=== PATIENT | female | born 1945 | race Two or more races ===

== ENCOUNTER 2021-12-09 16:06 | Observation (INO) | payer BC, SELFPAY ==
[2021-12-09 16:26] VITALS: BP 138/72; PULSE 60; RESP 18; TEMP 36.7; O2SAT 97; BMI 19.6
--- NOTE | 2021-12-09 16:44 | CRLHL7_ITS ---
For Patients: As a result of the Century Cures Act, medical imaging exams and procedure reports are released immediately into your electronic medical record. You may view this report before your referring provider. If you have questions, please contact your health care provider. CT HEAD DATE: 12/09/2021 CLINICAL HISTORY: Patient with head trauma. TECHNIQUE: Standard CT scanning of the head was performed. COMPARISON: None. FINDINGS: There is right parietal subgaleal soft tissue swelling. There is a small amount of subarachnoid hemorrhage within a left occipital sulcus adjacent to the tentorium. There is encephalomalacia in the left superior frontal lobe with associated ex-vacuo dilatation of the left lateral ventricle. There are mild microangiopathic changes. There is diffuse parenchymal volume loss. There is no mass effect or midline shift. The calvarium is unremarkable. The orbits are unremarkable. The paranasal sinuses are unremarkable. The mastoid air cells are unremarkable. The soft tissues are unremarkable. IMPRESSION: 1. Small amount of subarachnoid hemorrhage within a left occipital sulcus adjacent to the tentorium, likely post-traumatic. A repeat head CT in 4-6 hours is recommended to assess for interval change. 2. Right parietal subgaleal soft tissue swelling without associated fracture. 3. Encephalomalacia in the left superior frontal lobe with associated ex-vacuo dilatation of the left lateral ventricle. Findings were discussed with Dr. Guerrero at 5:52 PM, within 5 minutes of initial identification. Please note that all CT scans at this facility use dose modulation, iterative reconstruction, and/or weight-based dosing when appropriate to reduce radiation dose to as low as reasonably achievable. Dictated by: Tushar Lynn MD @ 12/09/2021 17:53:16 (Electronically Signed)
--- NOTE | 2021-12-09 16:58 | ED.GENADULT ---
HPI - General Adult General Chief complaint: Head Injury/Pain Stated complaint: Fell and hit her head Time Seen by Provider: 12/09/21 16:11 Source: patient Mode of arrival: wheelchair Limitations: no limitations History of Present Illness HPI narrative: 76-year-old female coming in today after falling 2 hours prior to presenting to the ED. she states she was at home in the bathroom when she was going to readjust herself on her wheelchair. The wheelchair is not have the brakes on properly and slid out from underneath her and she fell to the ground hitting the right side of her head on the floor. She denies headache or neck pain. She states that she came to the ER for it evaluation given her history of spontaneous head bleeds. 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 She has been in a wheelchair since which she is working with PT and rehab services and she states that she is almost walking independently. She states that she just uses her wheelchair as needed to get around but that she can walk with a walker and her goal is to eventually walk with a cane. She denies blurry vision, changes in her hearing. She denies neck or back pain. She lives independently in nursing home. Recently moved to [place] because her brother who is helping to take care of her. Patient does not take any blood thinners. Related Data Home Medications Medication Instructions Recorded Confirmed amlodipine 10 mg tablet mg 12/09/21 atorvastatin 20 mg tablet mg 12/09/21 carvedilol 12.5 mg tablet mg 12/09/21 cyclobenzaprine 5 mg tablet mg 12/09/21 levetiracetam 500 mg tablet mg PO 12/09/21 tamsulosin 0.4 mg capsule mg PO 12/09/21 Allergies Allergy/AdvReac Type Severity Reaction Status Date / Time Penicillins Allergy Verified 12/09/21 16:26 Review of Systems Status of ROS: Reports: 10 or more systems reviewed and unremarkable except as noted in History and below Exam Narrative: Exam Narrative: Well-nourished well-developed patient in no acute distress. Sitting comfortably in her wheelchair. Alert and oriented. Answers questions appropriately. Mood and affect are appropriate. Thoughts are goal oriented and rational. No tangential or magical thinking noted. Patient speaks in full sentences without needing to catch her breath. Speech is not slurred or pressured. There is no facial asymmetry noted. HEENT: Normocephalic. Pupils are equally round reactive to light. Extraocular muscles are intact. Conjunctivae are moist without any icterus noted. Moist mucous membranes. Posterior pharynx is normal. Neck is soft without any lymphadenopathy or thyromegaly. No trauma noted to the inside of the mouth. She does have a small hematoma of the right posterolateral scalp. No broken skin. Cardiovascular: Heart is regular rate and rhythm S1 and S2 are present. Lungs: Clear to auscultation bilaterally . She has no tenderness to palpation of the cervical or thoracic spine. She has good range of motion at the neck with flexion, extension, side way bending and rotation without any pain or difficulty. Const: Vital Signs, click to edit/add: Vital Signs - 24 hr 12/09/21 16:26 Temperature 98.0 F Pulse Rate [Right Pulse Oximeter] 60 Respiratory Rate 18 Blood Pressure [Ri ght Upper Arm] 138/72 Pulse Oximetry 97 Oxygen Delivery Me thod Room Air Course Course Hospital Course: We did go ahead proceed with a head CT, did not feel the need to do a neck CT given her lack of symptoms. Head CT showed a small subarachnoid hemorrhage. I did consult with Dr. Moyer, neurosurgery at [facility] who recommended a repeat CT scan in 6 hours. There was no interval change she could be safely discharged home, if there was a slight increase he recommended repeating scans until there was no interval change. If there is a significant change then he recommends transfer to a neuro surgery Center. Vital Signs Vital signs: Initial Vital Signs Temperature 98.0 F 12/09/21 16:26 Temperature Source Temporal Artery Scan 12/09/21 16:26 Pulse Rate 60 12/09/21 16:26 Respiratory Rate 18 12/09/21 16:26 Blood Pressure 138/72 12/09/21 16:26 Blood Pressure Mean 94 12/09/21 16:26 Blood Pressure Position Sitting 12/09/21 16:26 Pulse Oximetry 97 12/09/21 16:26 Oxygen Delivery Method 12/09/21 16:26 Vital Signs Temperature 98.0 F 12/09/21 16:26 Pulse Rate 60 12/09/21 16:26 Respiratory Rate 18 12/09/21 16:26 Blood Pressure 138/72 09/21/22 16:26 Pulse Oximetry 97 12/09/21 16:26 Oxygen Delivery Method 12/09/21 16:26 Temperature 98.0 F 12/09/21 16:26 Pulse Rate 60 12/09/21 16:26 Respiratory Rate 18 12/09/21 16:26 Blood Pressure 138/72 12/09/21 16:26 Pulse Oximetry 97 12/09/21 16:26 Oxygen Delivery Method 12/09/21 16:26 Medical Decision Making MDM Narrative Medical decision making narrative: 76-year-old female status post fall with a closed head injury and a subarachnoid bleed. Patient be admitted for further management and serial scans. Medical Records Medical records reviewed: Yes I reviewed the patient's medical records Imaging Data CT scan - head: Attestation: I have reviewed the pertinent imaging results. Radiologist's impression: TECHNIQUE: Standard CT scanning of the head was performed. COMPARISON: None. FINDINGS: There is right parietal subgaleal soft tissue swelling. There is a small amount of subarachnoid hemorrhage within a left occipital sulcus adjacent to the tentorium. There is encephalomalacia in the left superior frontal lobe with associated ex-vacuo dilatation of the left lateral ventricle. There are mild microangiopathic changes. There is diffuse parenchymal volume loss. There is no mass effect or midline shift. The calvarium is unremarkable. The orbits are unremarkable. The paranasal sinuses are unremarkable. The mastoid air cells are unremarkable. The soft tissues are unremarkable. IMPRESSION: 1. Small amount of subarachnoid hemorrhage within a left occipital sulcus adjacent to the tentorium, likely post-traumatic. A repeat head CT in 4-6 hours is recommended to assess for interval change. 2. Right parietal subgaleal soft tissue swelling without associated fracture. 3. Encephalomalacia in the left superior frontal lobe with associated ex-vacuo dilatation of the left lateral ventricle. Discharge Plan Discharge Clinical Impression: Subarachnoid hemorrhage, Closed head injury, Hematoma of scalp Patient Disposition: Admitted As Inpatient Condition: Stable Additional Instructions: Okay to ice tender area on head, do not apply ice directly to skin. Okay to take Tylenol as needed for discomfort. Return to the ER if you develop confusion, vomiting or lethargy. Prescriptions: No Action atorvastatin 20 mg tablet Label Comments: TAKE 1 TABLET (20 MG) BY MOUTH ONCE DAILY. carvedilol 12.5 mg tablet Label Comments: TAKE 1 TABLET (12.5 MG) BY MOUTH IN THE MORNING AND 1 TABLET IN THE EVENING. TAKE WITH MEALS. levetiracetam 500 mg tablet PO Label Comments: TAKE 1 TABLET (500 MG) BY MOUTH IN THE MORNING AND 1 TABLET IN THE EVENING. tamsulosin 0.4 mg capsule PO Label Comments: TAKE 1 CAPSULE (0.4 MG) BY MOUTH ONCE DAILY AFTER A MEAL. amlodipine 10 mg tablet Label Comments: TAKE 1 TABLET (10 MG) BY MOUTH ONCE DAILY. cyclobenzaprine 5 mg tablet Label Comments: TAKE 1 TABLET (5 MG) BY MOUTH 3 TIMES DAILY IF NEEDED FOR MUSCLE SPASM. Stand Alone Forms: [employer] Info Instructions
[2021-12-09 20:00] LABS: SARS PCR* Negative SARS-CoV-2 (Negative)
[2021-12-09 20:08] VITALS: BP 129/70; PULSE 64; RESP 12; TEMP 36.7
[2021-12-09 20:10] VITALS: BP 129/70; PULSE 64; RESP 12; TEMP 36.7; O2SAT 97
[2021-12-09 20:11] VITALS: BP 132/70; PULSE 66; RESP 16; TEMP 36.8; O2SAT 97; BMI 19.4
--- NOTE | 2021-12-09 20:44 | P.IMHP_ITS ---
Hospitalist- H&P: HPI History of Present Illness Date Seen: 12/09/21 Chief complaint: Fell and hit her head Narrative: REN SWEENEY is a 76 year old female who 3 years ago had a hemorrhagic CVA resulting in her use of a wheelchair. Pt has made remarkable improvements over the interim and is nearly able to walk on her own again. Pt recently moved from [facility] to [place]. She lives in a Senior apartment and unfortunately slipped off of her wheelchair while in the bathroom today. She fell and struck the right side of her head. She is not on anticoagulants but due to her history she presented to the ED for further evaluation. CT of the head showed a small amount of subarachnoidal hemorrhage within a left occipital sulcus as well as chronic encephalomalacia. Pt feels well and has only mild swelling with no head or neck pain no other injuries. Neurosurgeon recommended repeat CT in 6 hours with further studies if subtle change, transfer if no change and possible discharge in am if no change. No neck CT or lab work done. Review of Systems Status of ROS: Reports: 10 or more systems reviewed and unremarkable except as noted in History and below [facility] Medical History (Updated 12/09/21 @ 20:56 by Jimmy Roger MD) Hemorrhagic stroke Hyperlipidemia Hypertension Subarachnoid bleed Social History Smoking Status: Unknown if ever smoked Non-prescribed substance use: denies use Meds Home Medications and Allergies Home Medications Medication Instructions Recorded Confirmed Type amlodipine 10 mg tablet mg 12/09/21 History atorvastatin 20 mg tablet mg 12/09/21 History carvedilol 12.5 mg tablet mg 12/09/21 History cyclobenzaprine 5 mg tablet mg 12/09/21 History levetiracetam 500 mg tablet mg PO 12/09/21 History tamsulosin 0.4 mg capsule mg PO 12/09/21 History Home Medication Comments: Reviewed Allergies Allergy/AdvReac Type Severity Reaction Status Date / Time Penicillins Allergy Verified 12/09/21 16:26 Exam Narrative: Exam Narrative: EXAM GENERAL: Patient appears comfortable and well. Contusion noted the posterior occiput to the right of the midline. No skin breakdown. EYES: No scleral icterus. THYROID: no thyroid nodules or thyromegaly. LYMPH: No supraclavicular or cervical lymphadenopathy. SKIN: Visible skin seen during exam normal or with benign process only. EXT: No dependent lower extremity pedal edema. HEART: Regular rate and rhythm with no murmurs, rubs, or gallops. LUNGS: Clear to auscultation bilaterally with no crackles or wheezes. ABD: Soft, non tender, non distended. PSYCH: Good eye contact, speech is not pressured. Neurologic: Cranial nerves 2-12 were grossly intact she does have some lower extremity weakness but no focal defects. Const: Vital Signs, click to edit/add: Vital Signs - 24 hr 12/09/21 16:26 12/09/21 20:08 12/09/21 20:10 Temperature 98.0 F 98.0 F 98.0 F Pulse Rate [Right Pulse Oximeter] 60 64 64 Respiratory Rate 18 12 12 Blood Pressure [Ri ght Upper Arm] 138/72 129/70 129/70 Pulse Oximetry 97 97 Oxygen Delivery Me thod Room Air Room Air Assessment and Plan Assessment and plan (1) Subarachnoid bleed: Status: Acute Assessment and Plan: Pt is neurologically stable. Feeling fine with no complaints. Will repeat CT at the 6 hour audrey and follow Neurosurgery's recommendations as listed above. Will also collect CBC, BMP and will add CT of cervical spine to next imaging as a precaution. (2) Hyperlipidemia: Status: Chronic Assessment and Plan: Continue outpt regiment. (3) Hypertension: Status: Chronic Assessment and Plan: Stabel. Will continue outpt medications (4) Hemorrhagic stroke: Status: Chronic Assessment and Plan: Continue outpt regiment and further rehabilitation. Plan Pt wishes to be a full code.
[2021-12-09 21:00] VITALS: BP 132/70; PULSE 66; RESP 16; TEMP 36.8; O2SAT 97
[2021-12-09 22:28] LABS: Chloride* 103 mmol/L (96-114); Potassium* 3.7 mmol/L (3.6-5.1); Sodium* 139 mmol/L (135-149)
[2021-12-09 22:31] LABS: Blood Urea Nitrogen* 12 mg/dL (7-30); Calcium* 9.3 mg/dL (8.4-10.6); Carbon Dioxide* 26 mmol/L (20-32); Creatinine* 0.4 mg/dL (0.5-1.5); Est. Creatinine Clearance* 43.85; Estimated Glomerular Filt Rate 104 ml/min; Glucose* 129 mg/dL (60-115)
[2021-12-09 22:39] LABS: Basophils Absolute Auto 0.01 K/uL (0.00-0.30); Basophils Percent Auto 0.2 % (0.0-3.0); Eosinophils Absolute Auto 0.12 K/uL (0.00-0.50); Eosinophils Percent Auto 1.9 % (0.0-7.0); Hematocrit 40.2 % (33.0-51.0); Hemoglobin* 13.6 gm/dL (12.0-16.0); Immature Granulocytes Abs Auto 0.01 K/uL (0.00-0.30); Lymphocytes Absolute Auto 1.28 K/uL (0.90-2.90); Lymphocytes Percent Auto 20.4 % (20-44); Mean Corpuscular HGB Conc 34 gm/dL (32-36); Mean Corpuscular Hemoglobin 31 pg (26-34); Mean Corpuscular Volume 91 fL (80-100); Monocytes Percent Auto 12.1 % (0.0-11.0); Neutrophils Absolute Auto 4.09 K/uL (1.7-7.0); Neutrophils Percent Auto 65.2 % (42.0-72.0); Platelet Count* 286 K/uL (140-440); RDW Coefficient of Variation % 12.4 % (11.5-15.5); Red Blood Count 4.41 m/uL (4.00-5.20); White Blood Count* 6.27 K/uL (4.50-11.00)
[2021-12-09 22:52] LABS: Slide Review Reflex No
[2021-12-09 23:00] VITALS: BP 123/66; PULSE 61; RESP 16; TEMP 36.7; O2SAT 97
--- NOTE | 2021-12-10 | CRLHL7_ITS ---
For Patients: As a result of the Century Cures Act, medical imaging exams and procedure reports are released immediately into your electronic medical record. You may view this report before your referring provider. If you have questions, please contact your health care provider. INDICATION: Fall TECHNIQUE: CT cervical spine without contrast. COMPARISON: None FINDINGS: Vertebral alignment: Alignment is normal. Vertebrae: There are no fractures or suspicious bony lesions. Discs and facet joints: There are moderate multilevel degenerative disc and facet changes. Extraspinal findings: Paraspinous soft tissues are unremarkable. IMPRESSION: 1. No sign of acute injury. 2. Multilevel degenerative spondylosis. Please note that all CT scans at this facility use dose modulation, iterative reconstruction, and/or weight-based dosing when appropriate to reduce radiation dose to as low as reasonably achievable. Dictated by Venessa Hagen MD @ 12/10/2021 1:02:36 AM (Electronically Signed)
--- NOTE | 2021-12-10 | CRLHL7_ITS ---
For Patients: As a result of the Century Cures Act, medical imaging exams and procedure reports are released immediately into your electronic medical record. You may view this report before your referring provider. If you have questions, please contact your health care provider. INDICATION: Fall TECHNIQUE: Head CT without contrast. COMPARISON: December 09, 2021 FINDINGS: CSF spaces: Within normal limits for age. Brain parenchyma: There are nonspecific low attenuation white matter changes consistent with chronic microvascular disease. No sign of mass, hemorrhage, or midline shift. Encephalomalacia in the high left frontal lobe from prior infarction. There are a few foci of dystrophic calcification in this region, unchanged. Associated ex vacuo dilatation of the left lateral ventricle. Skull base and calvarium: The visualized paranasal sinuses and mastoid air cells demonstrate no acute or significant findings. The visualized orbits are grossly unremarkable. No skull fractures. There is intracranial atherosclerosis. IMPRESSION: 1. No acute findings. 2. Nonspecific white matter disease, typical of chronic microvascular disease. 3. Encephalomalacia in the high left frontal lobe from prior infarction. Please note that all CT scans at this facility use dose modulation, iterative reconstruction, and/or weight-based dosing when appropriate to reduce radiation dose to as low as reasonably achievable. Dictated by Venessa Hagen MD @ 12/10/2021 1:06:02 AM (Electronically Signed)
[2021-12-10 03:00] VITALS: BP 103/54; PULSE 66; RESP 16; TEMP 36.7; O2SAT 97
--- NOTE | 2021-12-10 05:18 | PC.NURSE ---
[id number]: patient had michael. CT, charge nures notified patient of results. paient able to make needs known, appears to have slept overnight.
[2021-12-10 07:00] VITALS: BP 113/61; PULSE 64; RESP 16; TEMP 36.7; O2SAT 95
--- NOTE | 2021-12-10 09:01 | CRLHL7_ITS ---
For Patients: As a result of the Century Cures Act, medical imaging exams and procedure reports are released immediately into your electronic medical record. You may view this report before your referring provider. If you have questions, please contact your health care provider. INDICATION: Subarachnoid hemorrhage. TECHNIQUE: CT head without contrast. COMPARISON: 12/10/2021. 12/09/2021. FINDINGS: CSF spaces: Within normal limits for age. Brain parenchyma and extra-axial spaces: Again demonstrated are small serpiginous densities in the occipital regions bilaterally, right greater than left. These are similar to the prior exams. Otherwise no sign of intracranial hemorrhage or extra-axial fluid collection. No mass effect or midline shift. Skull base and calvarium: The visualized paranasal sinuses and mastoid air cells demonstrate no acute or significant findings. The visualized orbits are grossly unremarkable. No skull fractures. IMPRESSION: No changes from the prior exam. Possible small areas of subarachnoid hemorrhage in the occipital regions are stable. No new or worsening finding. Please note that all CT scans at this facility use dose modulation, iterative reconstruction, and/or weight-based dosing when appropriate to reduce radiation dose to as low as reasonably achievable. Dictated by Dinesh Zhang MD @ 12/10/2021 10:33:00 AM (Electronically Signed)
--- NOTE | 2021-12-10 10:12 | P.DS_ITS ---
DS: Providers Provider Time Seen by Provider: 08:05 Date Seen: 12/10/21 Date of admission: 12/09/21 19:18 Primary care physician: Not a Local Provider Admitting Clinician: Jimmy Roger MD Attending Physician on discharge: Kelsi Melendez MD Date of Discharge: 12/10/21 DS: Diagnosis Discharge Diagnosis (1) Hyperlipidemia: Status: Chronic (2) Hypertension: Status: Chronic (3) Hemorrhagic stroke: Status: Chronic (4) Closed head injury: Status: Acute (5) Hematoma of scalp: Status: Acute (6) Subarachnoid hemorrhage: Status: Acute DS: Summary Hospital Course Hospital Course: This is a 76-year-old female with 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 Due to her history of intracranial bleed she is not on any anticoagulants. Upon presentation to the emergency department a CT head was done and showed a small amount of subarachnoid hemorrhage within the left occipital sulcus as well as chronic encephalomalacia. The patient felt well with only mild swelling and no other symptoms or injury. Neurosurgeon recommended repeating the CT in 6 hours with further studies if subtle change. CT cervical spine was completed and showed no sign of acute injury. Repeat head CT in 6 hours did not comment on previous subarachnoid hemorrhage finding. I spoke with the radiologist this morning who recommended a repeat head CT this morning. Physical exam appears to be at b as[facility]. Repeat head CT this morning shows stable SAH. Time Spent with Patient Time attestation: Total time spent providing and/or coordinating discharge services: Exam Narrative: Exam Narrative: General: No acute distress. Awake, alert, oriented x3. No pallor. No jaundice. Cardiovascular: Regular rate and rhythm. No murmurs, gallops, or rubs. Respiratory: Clear to auscultation bilaterally. No wheezes or crackles. Abdomen: Bowel sounds present. Soft, nondistended, nontender. Extremities: No pedal edema. Neuro: Cranial nerves 2-12 are intact. No facial asymmetry. Tongue is midline. Strength is 5/5 in both upper extremities. Strength is 3/5 in the distal portion of the right lower extremity and she has footdrop on that extremity, which is chronic. Left lower extremity is 4/5. Const: Vital Signs, click to edit/add: Vital Signs - 24 hr 12/09/21 16:26 12/09/21 20:08 12/09/21 20:10 Temperature 98.0 F 98.0 F 98.0 F Pulse Rate [Right Pulse Oximeter] 60 64 64 Respiratory Rate 18 12 12 Blood Pressure [Ri ght Radial Artery] Blood Pressure [Ri ght Upper Arm] 138/72 129/70 129/70 Pulse Oximetry 97 97 Oxygen Delivery Me thod Room Air Room Air 12/09/21 20:11 12/09/21 21:00 12/09/21 23:00 Temperature 98.3 F 98.3 F Pulse Rate [Right Pulse Oximeter] 66 66 61 Respiratory Rate 16 16 16 Blood Pressure [Ri ght Radial Artery] 132/70 132/70 Blood Pressure [Ri ght Upper Arm] Pulse Oximetry 97 97 Oxygen Delivery Me thod Room Air Room Air 12/09/21 23:00 12/10/21 03:00 12/10/21 07:00 Temperature 98.1 F 98.1 F Pulse Rate [Right Pulse Oximeter] 61 66 64 Respiratory Rate 16 16 16 Blood Pressure [Ri ght Radial Artery] 123/66 103/54 L Blood Pressure [Ri ght Upper Arm] Pulse Oximetry 97 97 Oxygen Delivery Me thod Room Air Room Air 12/10/21 07:00 Temperature 98.0 F Pulse Rate [Right Pulse Oximeter] 64 Respiratory Rate 16 Blood Pressure [Ri ght Radial Artery] 113/61 Blood Pressure [Ri ght Upper Arm] Pulse Oximetry 95 Oxygen Delivery Me thod Room Air DS: Data Data Completed and Pending Completed studies during hospitalization: Ordering Physician: Wendy Guerrero MD Date of Service: 12/09/21 Procedure(s): CT head/brain wo con Accession Number(s): [id number] cc: Wendy Guerrero MD; Provider,Not a Local ~ For Patients: As a result of the Century Cures Act, medical imaging exams and procedure reports are released immediately into your electronic medical record. You may view this report before your referring provider. If you have questions, please contact your health care provider. CT HEAD DATE: 12/09/2021 CLINICAL HISTORY: Patient with head trauma. TECHNIQUE: Standard CT scanning of the head was performed. COMPARISON: None. FINDINGS: There is right parietal subgaleal soft tissue swelling. There is a small amount of subarachnoid hemorrhage within a left occipital sulcus adjacent to the tentorium. There is encephalomalacia in the left superior frontal lobe with associated ex-vacuo dilatation of the left lateral ventricle. There are mild microangiopathic changes. There is diffuse parenchymal volume loss. There is no mass effect or midline shift. The calvarium is unremarkable. The orbits are unremarkable. The paranasal sinuses are unremarkable. The mastoid air cells are unremarkable. The soft tissues are unremarkable. IMPRESSION: 1. Small amount of subarachnoid hemorrhage within a left occipital sulcus adjacent to the tentorium, likely post-traumatic. A repeat head CT in 4-6 hours is recommended to assess for interval change. 2. Right parietal subgaleal soft tissue swelling without associated fracture. 3. Encephalomalacia in the left superior frontal lobe with associated ex-vacuo dilatation of the left lateral ventricle. Findings were discussed with Dr. Guerrero at 5:52 PM, within 5 minutes of initial identification. Please note that all CT scans at this facility use dose modulation, iterative reconstruction, and/or weight-based dosing when appropriate to reduce radiation dose to as low as reasonably achievable. Dictated by: Tushar Lynn MD @ 12/09/2021 17:53:16 (Electronically Signed) Ordering Physician: Jimmy Roger M.D. Date of Service: 12/10/21 Procedure(s): CT cervical spine wo con Accession Number(s): [id number] cc: Provider,Not a Local ; Jimmy Roger M.D.~ For Patients: As a result of the Century Cures Act, medical imaging exams and procedure reports are released immediately into your electronic medical record. You may view this report before your referring provider. If you have questions, please contact your health care provider. INDICATION: Fall TECHNIQUE: CT cervical spine without contrast. COMPARISON: None FINDINGS: Vertebral alignment: Alignment is normal. Vertebrae: There are no fractures or suspicious bony lesions. Discs and facet joints: There are moderate multilevel degenerative disc and facet changes. Extraspinal findings: Paraspinous soft tissues are unremarkable. IMPRESSION: 1. No sign of acute injury. 2. Multilevel degenerative spondylosis. Please note that all CT scans at this facility use dose modulation, iterative reconstruction, and/or weight-based dosing when appropriate to reduce radiation dose to as low as reasonably achievable. Dictated by Venessa Hagen MD @ 12/10/2021 1:02:36 AM (Electronically Signed) Ordering Physician: Jimmy Roger M.D. Date of Service: 12/10/21 Procedure(s): CT head/brain wo con Accession Number(s): [id number] cc: Provider,Not a Local ; Jimmy Roger M.D.~ For Patients: As a result of the Cures Act, medical imaging exams and procedure reports are released immediately into your electronic medical record. You may view this report before your referring provider. If you have questions, please contact your health care provider. INDICATION: Fall TECHNIQUE: Head CT without contrast. COMPARISON: December 09, 2021 FINDINGS: CSF spaces: Within normal limits for age. Brain parenchyma: There are nonspecific low attenuation white matter changes consistent with chronic microvascular disease. No sign of mass, hemorrhage, or midline shift. Encephalomalacia in the high left frontal lobe from prior infarction. There are a few foci of dystrophic calcification in this region, unchanged. Associated ex vacuo dilatation of the left lateral ventricle. Skull base and calvarium: The visualized paranasal sinuses and mastoid air cells demonstrate no acute or significant findings. The visualized orbits are grossly unremarkable. No skull fractures. There is intracranial atherosclerosis. IMPRESSION: 1. No acute findings. 2. Nonspecific white matter disease, typical of chronic microvascular disease. 3. Encephalomalacia in the high left frontal lobe from prior infarction. Please note that all CT scans at this facility use dose modulation, iterative reconstruction, and/or weight-based dosing when appropriate to reduce radiation dose to as low as reasonably achievable. Dictated by Venessa Hagen MD @ 12/10/2021 1:06:02 AM (Electronically Signed) Ordering Physician: Kelsi Melendez MD Date of Service: 12/10/21 Procedure(s): CT head/brain wo con Accession Number(s): [id number] cc: Kelsi Melendez MD; Provider,Not a Local ~ For Patients:? As a result of the Cures Act, medical imaging exams and procedure reports are released immediately into your electronic medical record.? You may view this report before your referring provider.? If you have questions, please contact your health care provider. INDICATION: Subarachnoid hemorrhage. TECHNIQUE: CT head without contrast. COMPARISON: 12/10/2021. 12/09/2021. FINDINGS: CSF spaces: Within normal limits for age.? Brain parenchyma and extra-axial spaces: Again demonstrated are small serpiginous densities in the occipital regions bilaterally, right greater than left. These are similar to the prior exams. Otherwise no sign of intracranial hemorrhage or extra-axial fluid collection. No mass effect or midline shift. Skull base and calvarium: The visualized paranasal sinuses and mastoid air cells demonstrate no acute or significant findings.? The visualized orbits are grossly unremarkable.? No skull fractures.? IMPRESSION: No changes from the prior exam. Possible small areas of subarachnoid hemorrhage in the occipital regions are stable. No new or worsening finding. Please note that all CT scans at this facility use dose modulation, iterative reconstruction, and/or weight-based dosing when appropriate to reduce radiation dose to as low as reasonably achievable. Dictated by Dinesh Zhang MD @ 12/10/2021 10:33:00 AM (Electronically Signed) Labs on day of discharge: Labs from last 24 hours 12/09/21 12/09/21 12/09/21 22:09 22:09 19:08 WBC 6.27 RBC 4.41 Hgb 13.6 Hct 40.2 MCV 91 MCH 31 MCHC 34 RDW Coeff of Jana 12.4 Plt Count 286 Neut % (Auto) 65.2 Lymph % (Auto) 20.4 [place] % (Auto) 12.1 H Eos % (Auto) 1.9 Baso % (Auto) 0.2 Neut # (Auto) 4.09 Lymph # (Auto) 1.28 [place] # (Auto) 0.80 Eos # (Auto) 0.12 Baso # (Auto) 0.01 Abs Immat Gran (auto) 0.01 Sodium 139 Potassium 3.7 Chloride 103 Carbon Dioxide 26 BUN 12 Creatinine 0.4 L Estimated Creat Clear 43.85 Estimated GFR 104 Glucose 129 H Calcium 9.3 SARS-CoV-2 (PCR) Negative SARS-CoV-2 Discharge Plan Discharge Disposition: Home, Self-Care Date of Admission: 12/09/21 19:18 Attending Provider on Discharge: Kelsi Melendez Primary Care Provider: Provider,Not a Local Condition: Stable Anticipated Discharge Date/Time: 12/10/21 00:00 Discharge Medications: Continued atorvastatin 20 mg tablet 20 mg PO DAILY carvedilol 12.5 mg tablet 12.5 mg PO BID levetiracetam 500 mg tablet 500 mg PO BID tamsulosin 0.4 mg capsule 0.4 mg PO DAILY amlodipine 10 mg tablet 10 mg PO DAILY cyclobenzaprine 5 mg tablet 5 mg PO TID PRN Discharge Orders: Discharge Order (Routine); Ordered 12/10/21 Ordered By: Kelsi Melendez Patient Education: Subarachnoid Hemorrhage (DC) Activity Restrictions/Additional Instructions: Okay to ice tender area on head, do not apply ice directly to skin. Okay to take Tylenol as needed for discomfort. Return to the ER if you develop confusion, vomiting or lethargy. Activity Level: Activity as Tolerated and Other Activity Detail: Use wheelchair as needed Discharge Diet: Regular Follow Up Appointments: Provider,Not a Local [Primary Care Provider] - Forms: [employer] Info Instructions
[2021-12-10] MEDS: levETIRAcetam 500 MG TABLET PO (10:51)
--- NOTE | 2021-12-10 11:49 | PC.SOCIAL ---
Social work note: Received call from pt's [facility] pillowcase turner, Adry ([phone]), stating she has spoken with pt today and is aware she is in the hospital. Adry states pt is already receiving nurse visits for medication set up from [facility], housekeeping services, [employer] and home delivered meals. Adry states pt's needs were met and home and she has no concerns at this time about need for increased services. However, if there is a change in home care or medication needs, Adry requested information or new medication orders be faxed to [facility] attn:Susan Ayon at fax#: [phone]. If there are no new identified needs, [facility] medical social worker will follow up with pt after discharge.
--- NOTE | 2021-12-10 12:00 | PC.SOCIAL ---
Met with pt., brother and [id number] per request for a Health Care Directive and Power of prepress operator for financial. Discussed the different forms and pt. wanted to fill out a POLST, HCD short-form appointing her [id number] as her health care agent, and a power of prepress operator for financial. All the above forms were filled out signed and notarized.
--- NOTE | 2021-12-10 12:13 | PC.NURSE ---
Pt. alert and oriented x4. Pt. denies any pain, N/V or SOB. Pt. able to ambulate using walker to BR, SBA. Pt. VSS. Pt. NPO until after CT scan and the all clear of no changes. Discharged at 1155, via pt.'s WC, accompanied by sister in law and Brother. Discharge instructions given and belongings list signed. Pt. verbalized understanding of Discharge instructions.
== END 2021-12-10 11:55 | disposition home or self-care (01) ==
LOC: ED 19:11 → MEDSURG 19:19
PROVIDERS: Admitting Provider Internal Medicine; Emergency Provider Family Medicine; PCP Family Medicine; Visit Provider Internal Medicine
DX: S06.6X0A Traumatic subarachnoid hemorrhage without loss of consciousness, initial encounter (principal); S00.03XA Contusion of scalp, initial encounter; G93.89 Other specified disorders of brain; W05.0XXA Fall from non-moving wheelchair, initial encounter; Y92.091 Bathroom in other non-institutional residence as the place of occurrence of the external cause; Y93.9 Activity, unspecified; Z86.73 Personal history of transient ischemic attack (TIA), and cerebral infarction without residual deficits; I10 Essential (primary) hypertension; E78.5 Hyperlipidemia, unspecified; F82 Specific developmental disorder of motor function
CPT/HCPCS: 36415; 70450; 72125; 80048; 85025; 87635; 99284; 99285; G0378; A9270; G0379

== ENCOUNTER 2022-06-02 09:15 | Outpatient (RCR) | payer BC, MEDICARE, MEDICAID, SELFPAY | END 2022-06-04 14:32 | disposition home or self-care (01) | PROVIDERS: PCP Family Medicine; Visit Provider Family Medicine | DX: Z86.73 Personal history of transient ischemic attack (TIA), and cerebral infarction without residual deficits (principal); Z51.89 Encounter for other specified aftercare | CPT/HCPCS: 97110; 97112; 97116; 97162; 97530; 97535 ==

== ENCOUNTER 2023-03-17 14:21 | Outpatient (CLI) | payer BC, SELFPAY | END 2023-03-17 14:22 | disposition home or self-care (01) | LOC: AMB 03-22 09:18 | PROVIDERS: PCP Family Medicine; Visit Provider Emergency Medicine Emergency Medical Services | DX: H53.9 Unspecified visual disturbance (principal) | CPT/HCPCS: A0425; A0429 ==

== ENCOUNTER 2023-03-17 14:37 | Emergency (ER) | payer BC, SELFPAY ==
[2023-03-17 14:46] VITALS: BP 133/83; PULSE 67; RESP 18; TEMP 36.9; O2SAT 94; BMI 20.4
--- NOTE | 2023-03-17 15:18 | ED.EYEPROB ---
HPI - Eye Problem General Date Seen: 03/17/23 Chief complaint: Eye Problems Stated complaint: Vision problems Time Seen by Provider: 03/17/23 14:41 Source: patient Mode of arrival: EMS Limitations: no limitations History of Present Illness HPI Narrative: Patient is a 77-year-old female history hemorrhagic strokes presenting to emergency department for vision concerns. She states she has been noticing vision floaters for the past month or so. She states this started shortly before she got her routine MRI done but she gets due to her previous strokes and seizures. She spoke to her neurologist about these floaters and she was told not to worry about them but did not get much more information other than that. They have persisted so she was concerned and spoke to the triage line. She was told to come to the emergency department immediately. She cannot drive due to residual stroke deficits of she called EMS. States she will occasionally have these black kiss appearing spots in her vision that come and go. They are not always there. She cannot think of any specifics that make them worse. Is not having any symptoms right now. Denies any weakness or numbness. Denies headache, chest pain, shortness of breath, fevers, chills, diarrhea, constipation, abdominal pain. No other concerns at this time Related Data Home Medications Medication Instructions Recorded Confirmed amlodipine 10 mg tablet 10 mg PO DAILY 12/09/21 12/10/21 atorvastatin 20 mg tablet 20 mg PO DAILY 12/09/21 12/10/21 carvedilol 12.5 mg tablet 12.5 mg PO BID 12/09/21 12/10/21 cyclobenzaprine 5 mg tablet 5 mg PO TID PRN 12/09/21 12/10/21 levetiracetam 500 mg tablet 500 mg PO BID 12/09/21 12/10/21 tamsulosin 0.4 mg capsule 0.4 mg PO DAILY 12/09/21 12/10/21 Allergies Allergy/AdvReac Type Severity Reaction Status Date / Time Penicillins Allergy Verified 12/09/21 16:26 Review of Systems Status of ROS: Reports: 10 or more systems reviewed and unremarkable except as noted in History and below [facility] Medical History (Updated 12/22/21 @ 14:22 by BRANDAN Gleason) Durable power of assistant prosecuting attorney in chart POLST (Physician Orders for Life-Sustaining Treatment) ?Z78.9 - Other specified health status (ICD-10) Health care directive on file ?Z78.9 - Other specified health status (ICD-10) Subarachnoid bleed ?I60.9 - Nontraumatic subarachnoid hemorrhage, unspecified (ICD-10) Hyperlipidemia ?E78.5 - Hyperlipidemia, unspecified (ICD-10) Hypertension ?I10 - Essential (primary) hypertension (ICD-10) Hemorrhagic stroke ?I61.9 - Nontraumatic intracerebral hemorrhage, unspecified (ICD-10) Social History Highest level of school completed/degree received: some college, no degree Smoking Status: Never smoker Do you use any of these nicotine containing products: None How often do you have a drink containing alcohol: never How often do you have six or more drinks on one occasion: Never AUDIT-C Alcohol total score: 0 Non-prescribed substance use: denies use Caffeine: No service: No Exam Narrative: Exam Narrative: Const: Well-nourished, Well-developed, in no distress Eyes: PERRL, no conjunctival injection, and symmetrical lids HENT: Atraumatic external nose and ears. Moist mucous membranes. Neck: Symmetric, trachea midline, No thyromegaly. CVS: RRR, No murmurs or gallops. Peripheral pulses 2+ and equal in all extremities RESP: Unlabored respiratory effort. Clear to auscultation bilaterally. GI: Nontender/Nondistended, No rebound or guarding. MSK:Extremities w/o deformity, Normal Active ROM Skin: Warm, Dry. No rashes or lesions. Neuro: Normal Muscle tone, No focal neurological deficits. Psych: Awake, Alert, & Oriented x3. Appropriate mood and affect. Const: Vital Signs, click to edit/add: Vital Signs - 24 hr 03/17/23 14:46 Temperature 98.5 F Pulse Rate [Right Pulse Oximeter] 67 Respiratory Rate 18 Blood Pressure [Ri ght Upper Arm] 133/83 Pulse Oximetry 94 Oxygen Delivery Me thod Room Air Course Vital Signs Vital signs: Initial Vital Signs Temperature 98.5 F 03/17/23 14:46 Temperature Source Temporal Artery Scan 03/17/23 14:46 Pulse Rate 67 03/17/23 14:46 Respiratory Rate 18 03/17/23 14:46 Blood Pressure 133/83 12/28/23 14:46 Blood Pressure Mean 99 03/17/23 14:46 Blood Pressure Position Sitting 03/17/23 14:46 Pulse Oximetry 94 03/17/23 14:46 Oxygen Delivery Method Room Air 03/17/23 14:46 Vital Signs Temperature 98.5 F 03/17/23 14:46 Pulse Rate 67 03/17/23 14:46 Respiratory Rate 18 03/17/23 14:46 Blood Pressure 133/83 03/17/23 14:46 Pulse Oximetry 94 03/17/23 14:46 Oxygen Delivery Method Room Air 03/17/23 14:46 Temperature 98.5 F 03/17/23 14:46 Pulse Rate 67 03/17/23 14:46 Respiratory Rate 18 03/17/23 14:46 Blood Pressure 133/83 03/17/23 14:46 Pulse Oximetry 94 03/17/23 14:46 Oxygen Delivery Method Room Air 03/17/23 14:46 MDM - Eye Problem MDM Narrative Medical decision making narrative: Patient is a 77-year-old female presenting for eye floaters. She was concerned that could be stroke related due to her long history brain issues. She states the symptoms started before her most recent routine MRI and she has talked to her neurologist about it once before but was never told if they would last for ever and not in she was concerned that they were still occurring. She spoke to a triage nurse and was told to come to the emergency department. She is asymptomatic at this time. Based on her description this does appear to be standard eye floaters. She is not having any other vision issues a and is currently reading a book. Is not having any other neurologic symptoms. I I do not believe imaging is necessary at this time and she can be discharged home. Discharge Plan Discharge Prescriptions: No Action atorvastatin 20 mg tablet 20 mg PO DAILY carvedilol 12.5 mg tablet 12.5 mg PO BID levetiracetam 500 mg tablet 500 mg PO BID tamsulosin 0.4 mg capsule 0.4 mg PO DAILY amlodipine 10 mg tablet 10 mg PO DAILY cyclobenzaprine 5 mg tablet 5 mg PO TID PRN Follow Up/Referrals: Delicia Lofton MD [Primary Care Provider] -
== END 2023-03-17 15:36 | disposition home or self-care (01) ==
PROVIDERS: Emergency Provider Student in an Organized Health Care Education/Training Program; PCP Family Medicine
DX: H43.393 Other vitreous opacities, bilateral (principal)
CPT/HCPCS: 99282

== ENCOUNTER 2023-07-08 15:07 | Outpatient (CLI) | payer BC, SELFPAY | END 2023-07-08 15:08 | disposition home or self-care (01) | LOC: AMB 07-10 13:41 | PROVIDERS: PCP Family Medicine; Visit Provider Emergency Medicine | DX: R53.1 Weakness (principal) | CPT/HCPCS: A0998 ==

== ENCOUNTER 2023-08-19 13:45 | Outpatient (RCR) | payer BC, SELFPAY ==
--- NOTE | 2022-12-23 12:53 | PT.OPEX ---
PT [facility] Start: 12/22/22 15:27 Freq: Status: Active Protocol: Document 12/22/22 15:27 HILDA (Rec: 12/22/22 17:10 HILDA [id number]) E-signed By Myrtle Anne PT Physical Therapy Outpatient Evaluation Insurance Information Recert Due Date 03/21/23 Insurance Name Medicaid Medical Diagnosis LATE EFFECTS OF CVA (RIGHT) I69.351 Treating Diagnosis UNSTEADY ON FEET R26.81 IMPAIRED COORDINATION R27.8 Referring MD HARRIS. Subjective Subjective PATIENT COMES TODAY STRONG MOTIVATION TO WALK WITH HER DADS MILENA STATING, I'M SO CLOSE AND I FEEL LIKE IF I JUST WAS A LITTLE STEADIER ON MY FEET AND STRONGER I COULD. SHE FEELS HER LAST REHAB DID NOT GET HER FAS FAR SHE FELT SHE COULD HAVE BEEN BEFORE SHE WAS DISCHARGED. SHE REPORTS HAVING HIRED A APPLICATION PENETRATION TESTER THAT GOT ME WALKING OUTSIDE ON THE SIDEWALK AND WORKING ON GETTING UP/DOWNSTAIRS. I CAN'T AFFORD HIM ANY LONGER AND FEEL THIS IS WHERE I WILL BE MORE SUCCESSFUL. SHE REPORTS SEVERAL FALLS IN THE LAST SEVERAL WEEKS D/T HER WALKER NOT LOCKING EFFECTIVELY AND MOVING DURING HER SITTING. SHE WAS UNABLE TO SELF RECOVER FROM THE FLOOR AND FEELS SHE NEEDS MORE PRACTICE HERE. Pain Comments GENERALIZED JOINT PAIN 2-05/28 Date of Last Physician Visit 11/26/22 Current Work Status Retired Occupation RETIRED SEAMSTRESS Preferred Name [employer] Precautions Therapy Limitations/Systems Review Cognition Objective Functional Test Performed & Score 30 SECOND STS: FAIL; PATIENT REQUIRES BUE FOR ASSISTANCE AND LIGHT CGA UPON STAND SHE PERFORMED 3 IN 30 SEC AND 5 IN 52 SEC 6 MIN WALK TEST: FAIL 4:52 AND 200FT Assessment Assessment/Impression PATIENT IS A [address] HARRIS TO EVAL AND TREAT S/O RIGHT HEMIPARESIS FOR STRENGTHENING AND MOBILITY TRAINING. PMHX INCLUDES BUT NOT LIMITED TO CVA 2019 AFFECTING R LE>UE, HTN, AND H/ O FALLS. SHE LIVES IN A INDEPENDENT HOUSING APARTMENT ON THE FIRST FLOOR WITH MODIFIED INDEPENDENCE IN A [place] APARTMENT. SHE HAS A BROTHER AND SISTER IN LAW THAT HELPS HER ON OCCASION BUT HIRES SOMEONE TO ASSIST HER 2-3 HOURS/WK FOR LAUNDRY AND OTHER CHORES THAT SHE IS UNABLE TO PERFORM. SHE WEARS AN AFO ON THE RIGHT THAT SHE FEELS IS FALLING APART BUT APPEARS TO BE FITTING APPROPRIATELY WITH SOME WEAR NOTED WITH THE VELCRO. SHE TRANSFERS FROM WC <> CHAIR WITH [employer] WITH SQUAT PIVOT TRANSFER. SHE IS ABLE TO STAND USING BUE WITH NOTED UNSTEADINESS UPON STAND BUT ABLE TO SELF RECOVER TODAY AFTER MULTIPLE ATTEMPTS. SHE DEMONSTRATES AN ATAXIC GAIT WITH POOR FOOT CLEARANCE AND STRIDE LENGTH R>L REQUIRING CGA WHEN USING BACK OF WC FOR SUPPORT. SHE REPORTS USING ROLLATOR FOR SHORT DISTANCES BUT PREDOMINATELY RELIES ON WC D/T SAFETY CONCERNS. SHE REPORTS PURCHASING A [facility] IN THE PAST WEEK BUT STRONGLY DESIRES TO USE HER FATHER SPC. WE DISCUSSED HER BALANCE SCORES AND HOW A SPC IS NOT APPROPRIATE FOR HER NEEDS WITH STRONG RECOMMENDATION TO USE HER ROLLATOR FOR ALL MOBILITY TO IMPROVE HER FUNCTIONAL BALANCE RATHER THAN USING HER WC IN THE APARTMENT. SHE WOULD BENEFIT FROM SKILLED PHYSICAL THERAPY TO ADDRESS FIRST SAFE STANDING PIVOT TRANSFERS WELL FLOOR RECOVERY, CORE STRENGTHENING, FUNCTIONAL STATIC AND DYNAMIC BALANCE, AND GT WITH THE SAFEST AD. PATIENT VERBALIZED UNDERSTANDING TO ALL SKILLED INSTRUCTION AND AGREEABLE TO POC AND FREQ. Primary Functional Limitations TRANSFERS FLOOR RECOVERY AMB BALANCE Plan of Care Rehabilitation Potential Good Physical Therapy Goals STG IN 4-6 WEEKS: 1. PATIENT WILL BE INDEPENDENT AND SAFE WITH HER STS TRANSFER FROM A VARIETY OF SURFACES WITH OR WITHOUT EXTERNAL SUPPORT 2. PATIENT WILL BE MOD I WITH FLOOR RECOVERY 3. PATIENT WILL DEMONSTRATE AN IMPROVEMENT FROM 3 W/BUE TO 6 W/BUE SIT TO STANDS 4. PATIENT WILL PERFORM A TUG W/ROLLATOR IN <40SEC LTG IN 10-12 WEEKS: 1. PATIENT WILL IMPROVE HER BALANCE AND COORDINATION TO IMPROVE GAIT, SAFETY AND DECREASED RISK FOR FALLS. 2. PATIENT WILL IMPROVE HER 6 MIN WALK TEST TO 600FT AND ENTIRE 6 MIN 3. PATIENT WILL DEMONSTRATE CONSISTENTLY SAFE AMB WITH [facility] FOR AMB IN HER APARTMENT. 4. PATIENT WILL BE INDEPENDENT WITH HEP. Coordination/Communication With Referral Source Treatment Plan/Direct Interventions Gait Training,Manual Therapy, Neuromuscular Re-ed, Therapeutic Activities, Therapeutic Exercises Frequency/Duration 1-2 VISITS FOR 10-12 WEEKS Patient Will Be Discharged From Therapy Completion of LTG(s), Independent w/HEP Discharge Plan Comments DISCHARGE TO SELF WHEN GOALS MET OR SKILLS PLATEAU Evaluation Billing Untimed Code Treatment Minutes 30 PT Eval No Charge No Complexity High Certification Information Initial Certification Date 12/22/22 Ending Certification Date 02/19/23 Provider Signature Shows Agreement With POC & Medical Necessity Physician Signature & Date Requested Please Sign/Date Here Physician Comment/Change : Physician NPI Number #
--- NOTE | 2023-05-11 15:56 | PT.OPDNX ---
[facility] Daily Note PT [facility] Daily Note Start: 12/22/22 15:27 Freq: Status: Active Protocol: Document 05/09/23 12:44 HILDA (Rec: 05/09/23 17:06 HILDA [id number]) E-signed By Myrtle Anne, PT PT OP Daily Progress Note Visit Information Note Type Recert/Progress Note Visit Number [id number] Insurance Information Recert Due Date 03/21/23 Insurance Name Medicaid Medical Diagnosis LATE EFFECTS OF CVA (RIGHT) I69.351 Treating Diagnosis UNSTEADY ON FEET R26.81 IMPAIRED COORDINATION R27.8 Referring MD HARRIS. Subjective Subjective PATIENT REPORTS CONTINUED CHALLENGE WITH OBTAINING ASSISTANCE IN THE HOME D/T AVAILABILITY OF WORKERS. SHE IS FRUSTRATED BUT UNDERSTANDS. SHE REPORTS THAT THE TELEPHONE VISIT WITH HER PHYSICIAN REGARDING THE MOTORIZED WC WENT WELL. OTHER THAN THAT, SHE IS WORKING DILIGENTLY ON AMB IN HER APARTMENT WITH HER HEMIWALKER. Preferred Name [facility] Home Exercise Home Exercise Comments 12/30/11: UPDATED HEP [id number] Objective Functional Test Performed & Score 30 SECOND STS: FAIL; PATIENT REQUIRES BUE FOR ASSISTANCE AND LIGHT CGA UPON STAND SHE PERFORMED 3 IN 30 SEC AND 5 IN 52 SEC 6 MIN WALK TEST: FAIL 4:52 AND 200FT 02/04/23: TUG 64 SEC 30 SEC: 8 5 STS: 17 SEC 05/09/23 Patient Instructed in Risks/Benefits Yes Therapeutic Activity Therapeutic Activity Minutes (minutes) 15 Therapeutic Activities Comments RECUMBENT X 10' WITH R FOOT STRAPPED IN STS TRAINING 2 X 10 Gait & Stair Training Gait Training/Stairs Minutes (minutes) 45 Gait & Stair Training Comments GT WITH NO AD 20' X 2 GT W/SPC 50FT X 4 GT W/LION 80 FT X 2 GT W/ROLLATOR FOR ENDURANCE 6MIN Treatment Minutes Timed Code Treatment Minutes 60 Total Treatment Time 60 Billing Units Gait Training/Stairs Units 3 Therapeutic Activity Units 1 Plan of Care Physical Therapy Goals 05/09/23 RCT GOALS: STS GOALS IN 4-6 WEEKS 1. PATIENT WILL DEMONSTRATE INDEPENDENCE AMB HOUSEHOLD DISTANCES (100FT) WITH HEMIWALKER OR 50' WITH SPC 2. PATIENT WILL STATIC STAND 1MIN W/O SUPPORT ON FIRM SURFACE 3. PATIENT WILL IMPROVE FROM 5 STS IN 30 SEC TO 8 SAFELY 4. PATIENT WILL PERFORM A TUG W/HEMIWALKER OR SPC TO <40SEC LTG IN 10-12 WEEKS: 1. PATIENT WILL IMPROVE HER BALANCE AND COORDINATION TO IMPROVE GAIT, SAFETY AND DECREASED RISK FOR FALLS. 2. PATIENT WILL IMPROVE HER 6 MIN WALK TEST TO 600FT AND ENTIRE 6 MIN 3. PATIENT WILL DEMONSTRATE CONSISTENTLY SAFE AMB WITH LION WALKER FOR LIMITED DISTANCES OUTSIDE HER APARTMENT. 4. PATIENT WILL BE INDEPENDENT WITH HER HEP WITH IN 8-12 WEEKS FOR PROGRESSION TOWARD THE ABOVEMENTIONED GOALS, CONTINUED SELF IMPROVEMENT WITH STRENGTH, COORDINATION, GAIT, AND SAFETY AWARENESS. Daily Plan of Care Continue per POC Recertification Information Initial Certification Date 12/22/22 Recertification Start Date 05/09/23 Recertification Due Date 08/08/23 Reasons to Continue Skilled Therapy MS. [place] IS PARTICIPATING IN A COMPREHENSIVE AND INDIVIDUALIZED PROGRAM TO ADDRESS HER FUNCTIONAL STRENGTH, BALANCE, AND MOBILITY IN ORDER FOR IMPROVE HER INDEPENDENCE IN HER HOME AND COMMUNITY ALIKE. SHE HAS WORK CONSISTENTLY WITH THE LION WALKER FOR LIMITED AMB IN APARTMENT AND ROLLATOR FOR AMB IN HER HALLWAY FOR ENDURANCE IN ORDER TO REACH HER GOAL OF AMB WITH HEMIWALKER LIMITED DISTANCES IN THE COMMUNITY. SHE NEEDS TO BE ABLE TO NAVIGATE OUTSIDE HER APARTMENT IN ORDER TO OBTAIN FOOD AND PARTICIPATE IN PEER CENTERED ACTIVITIES FOR QUALITY OF LIFE. WE ARE CURRENTLY WORKING ON OBTAINING A MOTORIZED WC TO ALLOW HER TO LEAVE HER APARTMENT W/O ASSISTANCE AND, EVENTUALLY RELY LESS ON HIRED TRANSPORTATION AND ASSISTANCE. SHE WOULD BENEFIT FROM CONTINUED SKILLED PHYSICAL THERAPY TO NOT ONLY ALLOW FOR GREATER INDEPENDENCE AND REDUCE HER RISK FOR FALLS BUT ALSO TO IMPROVE HER QUALITY OF LIFE. Rehabilitation Potential GOOD Continued Plan of Care and Interventions 2x/week X12 WEEKS Provider Signature Shows Agreement With POC & Medical Necessity Physician Comment/Change Comment or Changes
== END 2023-10-07 15:04 | disposition home or self-care (01) ==
PROVIDERS: PCP Family Medicine; Visit Provider Family Medicine
DX: I69.351 Hemiplegia and hemiparesis following cerebral infarction affecting right dominant side (principal); Z51.89 Encounter for other specified aftercare
CPT/HCPCS: 97110; 97112; 97116; 97163; 97530; 97535

== ENCOUNTER 2024-03-28 21:47 | Outpatient (CLI) | payer BC, SELFPAY | END 2024-03-28 21:48 | disposition home or self-care (01) | PROVIDERS: PCP Family Medicine; Visit Provider Family Medicine | DX: R53.1 Weakness (principal) ==

== ENCOUNTER 2025-01-04 20:24 | Outpatient (CLI) | payer BC, SELFPAY | END 2025-01-04 20:25 | disposition home or self-care (01) | LOC: AMB 01-09 23:01 | PROVIDERS: PCP Family Medicine; Visit Provider Family Medicine | DX: R53.1 Weakness (principal) | CPT/HCPCS: A0998 ==

== ENCOUNTER 2025-02-01 11:00 | Outpatient (RCR) | payer BC, SELFPAY | END 2025-02-08 10:33 | disposition home or self-care (01) | PROVIDERS: PCP Family Medicine; Visit Provider Family Medicine | DX: I62.9 Nontraumatic intracranial hemorrhage, unspecified (principal); G81.91 Hemiplegia, unspecified affecting right dominant side; R26.9 Unspecified abnormalities of gait and mobility; R27.9 Unspecified lack of coordination; R26.81 Unsteadiness on feet; Z86.79 Personal history of other diseases of the circulatory system; Z51.89 Encounter for other specified aftercare | CPT/HCPCS: 97110; 97116; 97140; 97162; 97165; 97530; 97535; 97542 ==

== ENCOUNTER 2025-02-04 11:43 | Outpatient (CLI) | payer BC, SELFPAY | END 2025-02-04 11:44 | disposition home or self-care (01) | LOC: AMB 02-07 15:58 | PROVIDERS: PCP Family Medicine; Visit Provider Family Medicine | DX: R41.82 Altered mental status, unspecified (principal) | CPT/HCPCS: A0425; A0427 ==

== ENCOUNTER 2025-02-04 12:11 | Observation (INO) | payer BC, SELFPAY ==
[2025-02-04] VITALS (33 sets, daily range): BP systolic 96–203; BP diastolic 68–183; PULSE 56–70; RESP 0–62; TEMP 37.9; O2SAT 94–98; BMI 23.1
--- NOTE | 2025-02-04 12:22 | ED.GENADULT ---
HPI - General Adult General Time Seen by Provider: 12:22 Date Seen: 02/04/25 Chief complaint: Altered Mental Status Stated complaint: Weakness Time Seen by Provider: 02/04/25 12:18 Source: patient, RN notes reviewed and old records reviewed Mode of arrival: ambulatory Limitations: no limitations History of Present Illness HPI narrative: This 79-year-old patient was found down in her independent apartment at [facility]. She had an appointment and was not answering the door. She was last known to be well around 4:00 p.m. yesterday. She was found unresponsive in her bed. She had brownish matter along her face, presumed dried vomit. Her bed was soaked in urine. Her glucose was normal per EMS. She was significantly hypertensive. She has a history of a hemorrhagic stroke. Patient was hospitalized here in 2021 with a small subarachnoid hemorrhage after a fall and hitting her head, this was stable and patient was able to be discharged. I do not see any evidence of any blood thinners, there is no known trauma, patient was found in her bed but she is unresponsive. In patient's [facility] records, can see that she has seen Neurology, saw Dr. Barnard in October of this year. She has experienced for strokes reportedly, 1st 3 occurring in 2019 in the most recent 1 in August of 2024. Her most recent stroke was associated with dizziness, vertigo and lightheadedness, occurring during a transfer from her bed to her wheelchair. She has underlying right-sided weakness since her strokes in 2019. She does have seizures as well. She has been found to have cerebral amyloid angiopathy. 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 I have asked staff that we observe this as a stroke code, believe this to be a hemorrhagic stroke but none the less stroke code. We did subsequently learned that the brother had talked to the patient at some point last night, I do not know the timing of that. Related Data Home Medications ?Medication ?Instructions ?Recorded ?Confirmed amlodipine 10 mg tablet 10 mg PO DAILY 12/09/21 12/10/21 atorvastatin 20 mg tablet 20 mg PO DAILY 12/09/21 12/10/21 carvedilol 12.5 mg tablet 12.5 mg PO BID 12/09/21 12/10/21 cyclobenzaprine 5 mg tablet 5 mg PO TID PRN 12/09/21 12/10/21 levetiracetam 500 mg tablet 500 mg PO BID 12/09/21 12/10/21 tamsulosin 0.4 mg capsule 0.4 mg PO DAILY 12/09/21 12/10/21 Allergies Allergy/AdvReac Type Severity Reaction Status Date / Time Penicillins Allergy Verified 02/04/25 12:35 Review of Systems Status of ROS: Reports: unobtainable due to medical condition PFSH PFS Medical History (Updated 02/04/25 @ 16:11 by Yarely Flanagan MD) POLST (Physician Orders for Life-Sustaining Treatment) ?Z78.9 - Other specified health status (ICD-10) Depression ?F32.A - Depression, unspecified (ICD-10) H/O completed stroke ?Z86.73 - Personal history of transient ischemic attack (TIA), and cerebral infarction without residual deficits (ICD-10) Cerebral amyloid angiopathy ?E85.4 - Organ-limited amyloidosis (ICD-10) ?I68.0 - Cerebral amyloid angiopathy (ICD-10) Subarachnoid hemorrhage ?I60.9 - Nontraumatic subarachnoid hemorrhage, unspecified (ICD-10) Intracranial hemorrhage ?I62.9 - Nontraumatic intracranial hemorrhage, unspecified (ICD-10) Durable power of senior attorney in chart Subarachnoid bleed ?I60.9 - Nontraumatic subarachnoid hemorrhage, unspecified (ICD-10) Hyperlipidemia ?E78.5 - Hyperlipidemia, unspecified (ICD-10) Hypertension ?I10 - Essential (primary) hypertension (ICD-10) Surgical History (Updated 02/04/25 @ 16:10 by Yarely Flanagan MD) No history of previous surgery Social History What is your current living situation?: I presently have a place to live Problems where you live: unable to answer In the past 12 months, utilities in danger of being shut off: no In past 12 months, lack of transportation kept you from medical appts, meetings, work, or getting things needed for daily living: unable to answer In the past 12 mos, have been you worried that your food would run out before you had money to buy more?: unable to answer In the past 12 mos, the food you bought just didn't last and you didn't have money to buy more?: unable to answer Highest level of school completed/degree received: don't know Smoking Status: Unknown if ever smoked Do you use any of these nicotine containing products: None Second hand tobacco smoke exposure: No How often do you have a drink containing alcohol: never How often do you have six or more drinks on one occasion: Never AUDIT-C Alcohol total score: 0 Non-prescribed substance use: other Non-prescribed substance use details: unable to answer Caffeine: No How often does anyone, including family, friends and others, physically hurt you: unable to answer How often does anyone, including family, friends and others, insult or talk down to you: unable to answer How often does anyone, including family, friends and others, threaten you with harm: unable to answer How often does anyone, including family, friends and others, scream or curse at you: unable to answer service: No Exam Const: Vital Signs, click to edit/add: Vital Signs - 24 hr 02/04/25 12:19 02/04/25 12:24 02/04/25 12:25 Temperature Pulse Rate 68 Pulse Rate [Pulse Oximeter] Respiratory Rate 18 18 Blood Pressure 203/183 H 143/123 H Blood Pressure [Ri ght Upper Arm] Pulse Oximetry 96 Oxygen Delivery Me thod 02/04/25 12:27 02/04/25 12:40 02/04/25 12:41 Temperature 100.3 F H Pulse Rate 67 66 Pulse Rate [Pulse Oximeter] 65 Respiratory Rate 18 20 20 Blood Pressure 122/108 H Blood Pressure [Ri ght Upper Arm] 143/123 H Pulse Oximetry 94 94 96 Oxygen Delivery Me thod Room Air 02/04/25 12:54 02/04/25 12:56 02/04/25 13:00 Temperature Pulse Rate 59 L 57 L 68 Pulse Rate [Pulse Oximeter] Respiratory Rate 22 0 L 20 Blood Pressure 152/84 H Blood Pressure [Ri ght Upper Arm] Pulse Oximetry 94 94 96 Oxygen Delivery Me thod 02/04/25 13:13 02/04/25 13:15 02/04/25 13:17 Temperature Pulse Rate 56 L 57 L 67 Pulse Rate [Pulse Oximeter] Respiratory Rate 45 H 46 H 52 H Blood Pressure 167/73 H 160/74 H Blood Pressure [Ri ght Upper Arm] Pulse Oximetry 96 96 97 Oxygen Delivery Me thod 02/04/25 13:22 02/04/25 13:27 02/04/25 13:30 Temperature Pulse Rate 65 62 57 L Pulse Rate [Pulse Oximeter] Respiratory Rate 51 H 47 H 39 H Blood Pressure 124/73 153/73 H Blood Pressure [Ri ght Upper Arm] Pulse Oximetry 96 96 97 Oxygen Delivery Me thod 02/04/25 13:32 02/04/25 13:33 02/04/25 13:35 Temperature Pulse Rate 63 68 Pulse Rate [Pulse Oximeter] Respiratory Rate 26 H 20 Blood Pressure 158/71 H Blood Pressure [Ri ght Upper Arm] Pulse Oximetry 97 96 98 Oxygen Delivery Me thod 02/04/25 13:37 02/04/25 13:42 02/04/25 13:45 Temperature Pulse Rate 60 64 61 Pulse Rate [Pulse Oximeter] Respiratory Rate 39 H 62 H 18 Blood Pressure 155/82 H 154/73 H Blood Pressure [Ri ght Upper Arm] Pulse Oximetry 97 96 96 Oxygen Delivery Me thod 02/04/25 13:47 02/04/25 13:51 02/04/25 13:57 Temperature Pulse Rate 64 66 59 L Pulse Rate [Pulse Oximeter] Respiratory Rate 42 H 25 H 29 H Blood Pressure 149/74 H 152/73 H 153/68 H Blood Pressure [Ri ght Upper Arm] Pulse Oximetry 97 96 96 Oxygen Delivery Me thod 02/04/25 14:00 02/04/25 14:03 02/04/25 14:07 Temperature Pulse Rate 64 62 59 L Pulse Rate [Pulse Oximeter] Respiratory Rate 0 L 41 H 0 L Blood Pressure 154/79 H 150/68 H Blood Pressure [Ri ght Upper Arm] Pulse Oximetry 96 95 96 Oxygen Delivery Me thod 02/04/25 14:12 02/04/25 14:15 02/04/25 14:17 Temperature Pulse Rate 63 61 62 Pulse Rate [Pulse Oximeter] Respiratory Rate 52 H 41 H 36 H Blood Pressure 148/78 H 156/71 H Blood Pressure [Ri ght Upper Arm] Pulse Oximetry 94 96 96 Oxygen Delivery Me thod 02/04/25 14:22 Temperature Pulse Rate 70 Pulse Rate [Pulse Oximeter] Respiratory Rate 31 H Blood Pressure 153/78 H Blood Pressure [Ri ght Upper Arm] Pulse Oximetry 94 Oxygen Delivery Me thod Patient is breathing independently, do not find her to follow any commands, does not respond to voice or painful stimuli. She is breathing independently,, resists opening her eyelids but pupils are about 3-4 mm, equal and round, conjugate gaze. Note no nystagmus. She has some tremor of the left hand, both hands drop independently back down to the bed if I lift them up. She follows no commands. She is breathing independently, lungs sound clear, no wheezing or crackles, no tachypnea. Neck without any masses. CV regular rate and rhythm, no murmur. Abdomen seems to be nondistended, do not feel any masses organomegaly, cannot evaluate for pain as patient is unresponsive. She makes no purposeful movements of her arms or legs. Documenting provider has reviewed patient's vital signs: yes Course Course ED Course: This 79-year-old female is unresponsive. She does have seizure disorder, this certainly could be exacerbated by intracranial pathology. Will load with a dose of Keppra as AC tremors in the left hand. I highly suspect repeat intracranial bleeding and suspect that she has major bleeding. We are trying to do a head CT as quickly as possible, there is an emergent study on the table for AAA thus delaying our imaging which we unfortunately have no ability to change at this time. We will get to her CT as quickly as possible. I will talk to Neurology after that. I am worried that she may have a severe not recoverable head bleed but ultimately will work with Neurology. Her brother has been contacted and is on his way. I am going to hold off doing any advanced maneuvers like intubation until we have gathered more information and know the severity of findings on her head CT. Will dose with Keppra, will work to bring her blood pressure down with nicardipine at this point. Pulses in the 60s and thus there really is not any significant room for p.r.n. dosing of labetalol at this time. Will do the Keppra and the nicardipine while we get are head CT. Reevaluation(s) Time of Reevaluation #1: 12:53 Reevaluation #1: Patient appears to have left intraparenchymal bleeds the left frontal lobe, there is blood into the left ventricle. Time of Reevaluation #2: 13:31 Reevaluation #2: Have spoken with the family, turns out I know the [id number] quite well, [id number] is to patient's brother. We have reviewed that patient is unresponsive, comatose. This is a non intervenable, non survival significant brain bleed. We discussed the cerebral amyloid angiopathy. They are accepting of the comfort cares. We discussed that patient likely had this happen quickly and did not suffer. We will talk to the hospitalist, make her comfort cares. She was in an independent apartment and thus cannot go back to the group home. Consultations Consultation #1: Radiology did call and go over the extensive nature of this bleed. Paged Neurology at [place], spoke with Dr. Haque at 12:59 p.m.. She will have me paged Neurosurgery. At 1:14 p.m. the transfer center did have further questions, reviewed with them that it just really needed neuro surgery to tell me that this is non treatable; at 1:19 p.m., transfer center from [place] called back, wanting to know if L1 to talk to the ICU physician. I stated that would be fine. At 1:25 p.m. I did speak with Dr. Galdamez from the ICU, he was able to pull the images up. States this is non survival bowl, there are no interventions, should make patient comfort care. Time: 12:57 Consultation #2: Have spoken with the hospitalist Dr. Flanagan. She accepts patient. Time: 13:39 Vital Signs Vital signs: Initial Vital Signs Blood Pressure 203/183 H 02/04/25 12:19 Blood Pressure Mean 189 H 02/04/25 12:19 Vital Signs Blood Pressure 203/183 H 02/04/25 12:19 Temperature 100.3 F H 02/04/25 12:27 Pulse Rate 66 02/05/25 07:00 Respiratory Rate 16 02/05/25 07:00 Blood Pressure 96/78 02/04/25 16:13 Pulse Oximetry 95 02/04/25 16:13 Oxygen Delivery Method Room Air 02/04/25 16:13 Medications Administered Medications: Generic Name Dose Route Start Last Admin Trade Name Freq PRN Reason Stop Dose Admin Fentanyl 1 patch 02/04/25 14:45 02/04/25 15:39 Fentanyl 25 Mcg/Hr Patch TRANSDERMA 1 patch Q72H BAYRON Administration Lorazepam 0.5 - 2 mg 02/04/25 14:42 02/04/25 22:47 Lorazepam 2 Mg/Ml Inj IVP 1 mg Q1H PRN Administration Morphine Sulfate 1 - 10 mg 02/04/25 14:42 02/05/25 07:48 Morphine 10 Mg/0.5 Ml Oral Soln PO 10 mg Q1H PRN Administration Morphine Sulfate 30 mg 02/04/25 18:45 02/04/25 18:47 Morphine 30 Mg Tablet.Er OH 30 mg BID BAYRON Administration Sodium Chloride 5 ml 02/04/25 21:00 02/04/25 20:23 Sodium Chloride 0.9 % (Flush) 10 Ml Syringe IVF 5 ml BID BAYRON Administration Discontinued Medications Generic Name Dose Route Start Last Admin Trade Name Freq PRN Reason Stop Dose Admin Levetiracetam/Sodium Chloride 2,000 mg 02/04/25 12:44 02/04/25 13:11 Levetiracetam 1,000 Mg/100 Ml Infusion IVPB 02/04/25 12:45 2,000 mg ONCE ONE Administration Medical Decision Making Lab Data Lab results reviewed: Yes I reviewed the patient's lab results Labs: Lab Results 02/04/25 Range/Units 12:30 WBC 16.56 H (4.50-11.00) K/uL RBC 4.76 (4.00-5.20) m/uL Hgb 14.1 (12.0-16.0) gm/dL Hct 43.1 (33.0-51.0) % MCV 91 (80-100) fL MCH 30 (26-34) pg MCHC 33 (32-36) gm/dL RDW Coeff of Jana 13.3 (11.5-15.5) % Plt Count 288 (140-440) K/uL Neut % (Auto) 86.7 H (42.0-72.0) % Lymph % (Auto) 3.7 L (20-44) % [place] % (Auto) 9.3 (0.0-11.0) % Eos % (Auto) 0.0 (0.0-7.0) % Baso % (Auto) 0.0 (0.0-3.0) % Neut # (Auto) 14.40 H (1.7-7.0) K/uL Lymph # (Auto) 0.60 L (0.90-2.90) K/uL [place] # (Auto) 1.50 H (0.00-0.90) K/UL Eos # (Auto) 0.00 (0.00-0.50) K/uL Baso # (Auto) 0.00 (0.00-0.30) K/uL Abs Immat Gran (auto) 0.00 (0.00-0.30) K/uL Imm/Tot Granulo (auto) 0.3 % INR 0.99 (0.91-1.10) APTT 23 (23-33) Seconds VBG pH 7.494 H (7.32-7.43) VBG pCO2 35 L (40-50) mmHG VBG pO2 68.9 H (25-47) mmHG VBG HCO3 27 (21-28) mmol/L Sodium 146 (135-149) mmol/L Potassium 3.8 (3.6-5.1) mmol/L Chloride 111 (96-114) mmol/L Carbon Dioxide 25 (20-32) mmol/L Anion Gap 10 (7-15) mEq/L BUN 28 (7-30) mg/dL Creatinine 0.6 (0.5-1.5) mg/dL Estimated Creat Clear 44.10 Estimated GFR 92 ml/min Glucose 142 H (60-115) mg/dL Lactate 1.5 (0.5-1.9) mmol/L Calcium 9.8 (8.4-10.6) mg/dL Total Bilirubin 0.8 (0.1-1.5) mg/dL AST 47 H (12-35) U/L ALT 25 (4-35) U/L Alkaline Phosphatase 89 (40-150) U/L Total Creatine Kinase 554 H (41-117) U/L Troponin I 0.02 (0.01-0.04) ng/mL NT-Pro-B Natriuret Pep 1240 H (See Note) pg/mL Total Protein 8.4 H (6.0-8.3) g/dL Albumin 4.5 (3.3-5.0) g/dL Ethyl Alcohol < 0.01 (0.01-0.03) % Imaging Data CT scan - head: Attestation: I have reviewed the pertinent imaging results. My impression: Did visualize her head CT when she was in Radiology having it done. There is large what appears to be intraparenchymal left frontal lobe bleeding, see blood in the ventricle, believe there was blood over on the right side as well. Radiologist's impression: Patient: REN SWEENEY Facility:?[facility] Patient ID:?[id number] Site Patient ID:?[id number]. Site :?[id number] Study:?CT-Head WITHOUT-02/04/2025 12:52:20 PM Ordering Physician:?John Nguyen Final Report: INDICATION: AMS. No other history is provided. In discussing this case with the ordering provider the patient is known to have a history of cerebral amyloid angiopathy. COMPARISON: No recent prior comparison study. Comparison is made to an exam dated 12/09/2021. TECHNIQUE: CT of the head without intravenous contrast. Please note that all CT scans at this facility use dose modulation, iterative reconstruction, and/or weight-based dosing when appropriate to reduce radiation dose to as low as reasonably achievable. FINDINGS: Large mixed attenuation left frontal lobe hematoma with associated mass effect including 7 mm rightward midline shift and effacement of the frontal horn of the left lateral ventricle. Intraventricular hemorrhage is present within the occipital horns of the lateral ventricles. Asymmetrical dilatation of the right temporal horn. Bilateral cerebral convexity and cerebellar sulcal subarachnoid hemorrhage is also noted. Clear paranasal sinuses. Right-sided nasal septal spur. IMPRESSION: Large heterogeneous left frontal lobe hematoma with intraventricular decompression and bilateral supratentorial and infratentorial subarachnoid hemorrhage. 7 mm rightward shift, effacement of the frontal horn of the left lateral ventricle, dilated temporal horn of the right lateral ventricle. Emergent neurosurgical consultation is recommended. Discussed with the ordering provider Wendy Lopez at 12:59 p.m. [employer]OF[employer] SURGERY RESIDENT. Please note that all CT scans at this facility use dose modulation, iterative reconstruction, and/or weight-based dosing when appropriate to reduce radiation dose to as low as reasonably achievable. Dictated by Zenon Ontiveros MD @ 02/04/2025 1:06:26 PM (Electronic Signature) Chest x-ray: Attestation: I have reviewed the pertinent imaging results. Radiologist's impression: Patient: REN SWEENEY Facility:?[facility] Patient ID:?[id number] Site Patient ID:?[id number]. Site :?[id number] Study:?XRay-Chest PORTABLE-02/04/2025 1:12:25 PM Ordering Physician:Lorri Nguyen Final Report: Indication: Altered mental status Technique: Chest 1 view. Comparison: None. Findings/Impression: No focal consolidation, pleural effusion, or pneumothorax. Mild increased interstitial markings, which can be effective of pulmonary vascular congestion. The cardiac silhouette is normal. Dictated by Darren Aguayo MD @ 02/04/2025 1:18:33 PM (Electronic Signature) ECG Data Attestation: I personally reviewed and interpreted this ECG as follows: (Normal sinus rhythm, 64 beats per minute, some artifacts, right bundle branch block. No ischemia or or infarct noted.) Prior ECG tracings: not available for review Discharge Plan Discharge Clinical Impression: Intracranial hemorrhage, Unresponsive, Need for comfort care Patient Disposition: Admitted As Observation Procedures ABG Interpretation ABG Results: 02/04/25 12:30 VBG pH 7.494 H VBG pCO2 35 L VBG pO2 68.9 H VBG HCO3 27
--- NOTE | 2025-02-04 12:23 | CRLHL7_ITS ---
For Patients: As a result of the Cures Act, medical imaging exams and procedure reports are released immediately into your electronic medical record. You may view this report before your referring provider. If you have questions, please contact your health care provider. Indication: Altered mental status Technique: Chest 1 view. Comparison: None. Findings/Impression: No focal consolidation, pleural effusion, or pneumothorax. Mild increased interstitial markings, which can be effective of pulmonary vascular congestion. The cardiac silhouette is normal. Dictated by Darren Aguayo MD @ 02/04/2025 1:18:33 PM (Electronically Signed)
--- NOTE | 2025-02-04 12:23 | CRLHL7_ITS ---
For Patients: As a result of the Cures Act, medical imaging exams and procedure reports are released immediately into your electronic medical record. You may view this report before your referring provider. If you have questions, please contact your health care provider. INDICATION: AMS. No other history is provided. In discussing this case with the ordering provider the patient is known to have a history of cerebral amyloid angiopathy. COMPARISON: No recent prior comparison study. Comparison is made to an exam dated 12/09/2021. TECHNIQUE: CT of the head without intravenous contrast. Please note that all CT scans at this facility use dose modulation, iterative reconstruction, and/or weight-based dosing when appropriate to reduce radiation dose to as low as reasonably achievable. FINDINGS: Large mixed attenuation left frontal lobe hematoma with associated mass effect including 7 mm rightward midline shift and effacement of the frontal horn of the left lateral ventricle. Intraventricular hemorrhage is present within the occipital horns of the lateral ventricles. Asymmetrical dilatation of the right temporal horn. Bilateral cerebral convexity and cerebellar sulcal subarachnoid hemorrhage is also noted. Clear paranasal sinuses. Right-sided nasal septal spur. IMPRESSION: Large heterogeneous left frontal lobe hematoma with intraventricular decompression and bilateral supratentorial and infratentorial subarachnoid hemorrhage. 7 mm rightward shift, effacement of the frontal horn of the left lateral ventricle, dilated temporal horn of the right lateral ventricle. Emergent neurosurgical consultation is recommended. Discussed with the ordering provider Wendy Lopez at 12:59 p.m. [employer]. Please note that all CT scans at this facility use dose modulation, iterative reconstruction, and/or weight-based dosing when appropriate to reduce radiation dose to as low as reasonably achievable. Dictated by Zenon Ontiveros MD @ 02/04/2025 1:06:26 PM (Electronically Signed)
[2025-02-04 12:42] LABS: Hematocrit* 43.1 % (33.0-51.0); Hemoglobin* 14.1 gm/dL (12.0-16.0); Immature Granulocytes Pct Auto 0.3 %; Mean Corpuscular HGB Conc 33 gm/dL (32-36); Mean Corpuscular Hemoglobin 30 pg (26-34); Mean Corpuscular Volume 91 fL (80-100); RDW Coefficient of Variation % 13.3 % (11.5-15.5); Red Blood Count* 4.76 m/uL (4.00-5.20); White Blood Count* 16.56 K/uL (4.50-11.00)
[2025-02-04 12:46] LABS: HCO3 VBG 27 mmol/L (21-28); Immature Granulocytes Abs Auto 0.00 K/uL (0.00-0.30); Lactate* 1.5 mmol/L (0.5-1.9); Lymphocytes Absolute Auto 0.60 K/uL (0.90-2.90); PCO2 VBG 35 mmHG (40-50); PO2 VBG 68.9 mmHG (25-47); Slide Review Reflex No; pH VBG 7.494 (7.32-7.43)
[2025-02-04 13:02] LABS: Albumin* 4.5 g/dL (3.3-5.0); Chloride* 111 mmol/L (96-114); INR 0.99 (0.91-1.10); Potassium* 3.8 mmol/L (3.6-5.1); Prothrombin Time 13.9 Seconds; Sodium* 146 mmol/L (135-149)
[2025-02-04 13:05] LABS: Alanine Aminotransferase* 25 U/L (4-35); Alkaline Phosphatase* 89 U/L (40-150); Anion Gap 10 mEq/L (7-15); Aspartate Amino Transferase* 47 U/L (12-35); Bilirubin Total* 0.8 mg/dL (0.1-1.5); Blood Urea Nitrogen* 28 mg/dL (7-30); Calcium* 9.8 mg/dL (8.4-10.6); Carbon Dioxide* 25 mmol/L (20-32); Creatine Kinase* 554 U/L (41-117); Creatinine* 0.6 mg/dL (0.5-1.5); Est. Creatinine Clearance* 44.10; Estimated Glomerular Filt Rate 92 ml/min; Glucose* 142 mg/dL (60-115); Total Protein* 8.4 g/dL (6.0-8.3)
[2025-02-04 13:11] LABS: Ethanol* < 0.01 % (0.01-0.03)
[2025-02-04] MEDS: LEVETIRACETAM 1,000 mg/100 ml INFUSION 2000 MG IVPB (13:11)
[2025-02-04 13:27] LABS: PCR FLU A Negative PCR FLU A (Negative); PCR FLU B Negative PCR FLU B (Negative); PCR RSV Negative PCR RSV (Negative); SARS PCR* Negative SARS-CoV-2 (Negative)
[2025-02-04 13:38] LABS: NT Pro B Type NatriureticPept* 1240 pg/mL (See Note)
--- NOTE | 2025-02-04 15:14 | PM.IMHP1 ---
Assessment and Plan Assessment and plan (1) Hemorrhagic cerebrovascular accident (CVA): Problem comment: -this is not survivable. not compatible with life beyond hours. -massive left frontal lobe bleed -associated intraventricular decompression, bilateral subarachnoid hemorrhages, rightward shift, effacement of the frontal horn and left lateral ventricle. Dilated temporal horn of the right lateral ventricle. -comfort cares/Hospice appropriate Status: Acute (2) End of life care: Status: Acute (3) Cerebral amyloid angiopathy: Problem comment: known; chronic - previous strokes. Status: Acute (4) H/O completed stroke: Status: Acute (5) POLST (Physician Orders for Life-Sustaining Treatment): Problem comment: brother and OVI - present POA paperwork and previous POLST - given current situation, comfort care is appropriate. Status: Acute (6) Hypertension: Status: Acute (7) Hyperlipidemia: Status: Acute (8) Depression: Status: Acute Hospitalist- H&P: HPI History of Present Illness Date Seen: 02/04/25 Chief complaint: Weakness Narrative: ADMISSION HISTORY AND PHYSICAL - HOSPITALIST Chief Complaint: found down; stroke suspected HPI: 79 yo white female with a history of cerebral amyloid angiopathy and history of stroke presents after being found down in her bed. She did not answer the door for an expected appointment. She was found unresponsive. She had dried vomit and was soaked in urine. She was is euglycemic and hypertensive. She only responded to pain with withdrawal. Stat CT revealed a large heterogeneous left frontal lobe hematoma with intraventricular decompression and bilateral supratentorial and infratentorial subarachnoid hemorrhage. There was a 7 mm rightward shift. There is effacement of the frontal horn of the left lateral ventricle, dilated temporal horn of the right lateral ventricle. ER COURSE: Stat head CT, stat ICU/neuro surgery consultations. All involved providers felt this was a devastating injury and unsurvivable. Her brother and [id number] who are her POA, understand this diagnosis and prognosis. They elected to make her comfort cares. To that end, hospital medicine was consulted for admission and comfort care. CODE STATUS: DNR DNI PCP: Delicia Lofton MD EMERGENCY CONTACT PLAN: brother/OVI are POA I've updated the PFSH, medications and allergies in the Expanse tabs. INVESTIGATIONS: LABS/MICRO/ECG/IMAGING 153/78. Pulse 70. Respiratory rate 31. Temp 100.3?. O2 sat 94%. CBC reflects a leukocytosis of 16.56. Hemoglobin 14. Platelet count 288. 86% neutrophils. INR 0.9 PH 7.49 Electrolytes are normal. Renal function is normal. Blood glucose 142. Lactate normal. CK 550. BNP is 1200. Stat Head CT IMPRESSION: Large heterogeneous left frontal lobe hematoma with intraventricular decompression and bilateral supratentorial and infratentorial subarachnoid hemorrhage. 7 mm rightward shift, effacement of the frontal horn of the left lateral ventricle, dilated temporal horn of the right lateral ventricle. Emergent neurosurgical consultation is recommended. CXR No focal consolidation, pleural effusion, or pneumothorax. Mild increased interstitial markings, which can be effective of pulmonary vascular congestion. The cardiac silhouette is normal. EKG shows NSR, RBBB REVIEW OF SYSTEMS: unobtainable PHYSICAL EXAM: CONSTITUTIONAL: obtunded. does not follow commands; breathing spontaneously, no response to sternal rub. furrows with pupil exam and light. mild tremor on/off in left upper extremity. GENERAL: Well nourished. No respiratory distress. VITAL SIGNS: see record. HEENT: Sclerae are anicteric. No petechiae. CARDIAC: rhythm is regular. There is no S3 or rub. No harsh murmurs. Extremities show trace edema with symmetrical pulses. ABDOMEN: soft NEURO: GCS: 4. obtunded. does not follow commands; breathing spontaneously, no response to sternal rub. furrows with pupil exam and light. mild tremor on/off in left upper extremity. SKIN: No rashes, petechiae, concerning changes PSYCHIATRIC: obtunded. ADMIT TO MEDSURG: FLOOR CARE DVT: N/A GI: N/A Time spent: Today I spent 75 minutes seeing the patient, discussing the patient with ER staff, reviewing Expanse and EPIC notes/diagnostics, discussing the care plan with our care time that includes social work, PT/OT, pharmacy, RT, group home and documenting my impressions and plan in the medical record. Medical Decision Making Medical Decision Making Has patient completed a Health Care Directive: Yes [facility] Medical History (Updated 02/04/25 @ 16:11 by Yarely Flanagan MD) POLST (Physician Orders for Life-Sustaining Treatment) ?Z78.9 - Other specified health status (ICD-10) Depression ?F32.A - Depression, unspecified (ICD-10) H/O completed stroke ?Z86.73 - Personal history of transient ischemic attack (TIA), and cerebral infarction without residual deficits (ICD-10) Cerebral amyloid angiopathy ?E85.4 - Organ-limited amyloidosis (ICD-10) ?I68.0 - Cerebral amyloid angiopathy (ICD-10) Subarachnoid hemorrhage ?I60.9 - Nontraumatic subarachnoid hemorrhage, unspecified (ICD-10) Intracranial hemorrhage ?I62.9 - Nontraumatic intracranial hemorrhage, unspecified (ICD-10) Durable power of environmental attorney in chart Subarachnoid bleed ?I60.9 - Nontraumatic subarachnoid hemorrhage, unspecified (ICD-10) Hyperlipidemia ?E78.5 - Hyperlipidemia, unspecified (ICD-10) Hypertension ?I10 - Essential (primary) hypertension (ICD-10) Surgical History (Updated 02/04/25 @ 16:10 by Yarely Flanagan MD) No history of previous surgery Social History Highest level of school completed/degree received: some college, no degree Smoking Status: Never smoker Do you use any of these nicotine containing products: None How often do you have a drink containing alcohol: never How often do you have six or more drinks on one occasion: Never AUDIT-C Alcohol total score: 0 Non-prescribed substance use: denies use Caffeine: No service: No Meds Home Medications and Allergies Home Medications ?Medication ?Instructions ?Recorded ?Confirmed ?Type amlodipine 10 mg tablet 10 mg PO DAILY 12/09/21 12/10/21 History atorvastatin 20 mg tablet 20 mg PO DAILY 12/09/21 12/10/21 History carvedilol 12.5 mg tablet 12.5 mg PO BID 12/09/21 12/10/21 History cyclobenzaprine 5 mg tablet 5 mg PO TID PRN 12/09/21 12/10/21 History levetiracetam 500 mg tablet 500 mg PO BID 12/09/21 12/10/21 History tamsulosin 0.4 mg capsule 0.4 mg PO DAILY 12/09/21 12/10/21 History Allergies Allergy/AdvReac Type Severity Reaction Status Date / Time Penicillins Allergy Verified 02/04/25 12:35 Exam Const: Vital Signs, click to edit/add: Vital Signs - 24 hr 02/04/25 12:19 02/04/25 12:24 02/04/25 12:25 Temperature Pulse Rate 68 Pulse Rate [Pulse Oximeter] Respiratory Rate 18 18 Blood Pressure 203/183 H 143/123 H Blood Pressure [Ri ght Upper Arm] Pulse Oximetry 96 Oxygen Delivery Me thod 02/04/25 12:27 02/04/25 12:40 02/04/25 12:41 Temperature 100.3 F H Pulse Rate 67 66 Pulse Rate [Pulse Oximeter] 65 Respiratory Rate 18 20 20 Blood Pressure 122/108 H Blood Pressure [Ri ght Upper Arm] 143/123 H Pulse Oximetry 94 94 96 Oxygen Delivery Me thod Room Air 02/04/25 12:54 02/04/25 12:56 02/04/25 13:00 Temperature Pulse Rate 59 L 57 L 68 Pulse Rate [Pulse Oximeter] Respiratory Rate 22 0 L 20 Blood Pressure 152/84 H Blood Pressure [Ri ght Upper Arm] Pulse Oximetry 94 94 96 Oxygen Delivery Me thod 02/04/25 13:13 02/04/25 13:15 02/04/25 13:17 Temperature Pulse Rate 56 L 57 L 67 Pulse Rate [Pulse Oximeter] Respiratory Rate 45 H 46 H 52 H Blood Pressure 167/73 H 160/74 H Blood Pressure [Ri ght Upper Arm] Pulse Oximetry 96 96 97 Oxygen Delivery Me thod 02/04/25 13:22 02/04/25 13:27 02/04/25 13:30 Temperature Pulse Rate 65 62 57 L Pulse Rate [Pulse Oximeter] Respiratory Rate 51 H 47 H 39 H Blood Pressure 124/73 153/73 H Blood Pressure [Ri ght Upper Arm] Pulse Oximetry 96 96 97 Oxygen Delivery Me thod 02/04/25 13:32 02/04/25 13:33 02/04/25 13:35 Temperature Pulse Rate 63 68 Pulse Rate [Pulse Oximeter] Respiratory Rate 26 H 20 Blood Pressure 158/71 H Blood Pressure [Ri ght Upper Arm] Pulse Oximetry 97 96 98 Oxygen Delivery Me thod 02/04/25 13:37 02/04/25 13:42 02/04/25 13:45 Temperature Pulse Rate 60 64 61 Pulse Rate [Pulse Oximeter] Respiratory Rate 39 H 62 H 18 Blood Pressure 155/82 H 154/73 H Blood Pressure [Ri ght Upper Arm] Pulse Oximetry 97 96 96 Oxygen Delivery Me thod 02/04/25 13:47 02/04/25 13:51 02/04/25 13:57 Temperature Pulse Rate 64 66 59 L Pulse Rate [Pulse Oximeter] Respiratory Rate 42 H 25 H 29 H Blood Pressure 149/74 H 152/73 H 153/68 H Blood Pressure [Ri ght Upper Arm] Pulse Oximetry 97 96 96 Oxygen Delivery Me od 02/04/25 14:00 02/04/25 14:03 02/04/25 14:07 Temperature Pulse Rate 64 62 59 L Pulse Rate [Pulse Oximeter] Respiratory Rate 0 L 41 H 0 L Blood Pressure 154/79 H 150/68 H Blood Pressure [Ri ght Upper Arm] Pulse Oximetry 96 95 [facility]/25 14:12 02/04/25 14:15 02/04/25 14:17 Temperature Pulse Rate 63 61 62 Pulse Rate [Pulse Oximeter] Respiratory Rate 52 H 41 H 36 H Blood Pressure 148/78 H 156/71 H Blood Pressure [Ri ght Upper Arm] Pulse Oximetry 94 96 96 [facility] 02/04/25 14:22 Temperature Pulse Rate 70 Pulse Rate [Pulse Oximeter] Respiratory Rate 31 H Blood Pressure 153/78 H Blood Pressure [Ri ght Upper Arm] Pulse Oximetry 94 Oxygen Delivery Me od Hospitalist - H&P: Result Labs Labs: Short CBC 02/04/25 Range/Units 12:30 WBC 16.56 H (4.50-11.00) K/uL Hgb 14.1 (12.0-16.0) gm/dL Hct 43.1 (33.0-51.0) % Plt Count 288 (140-440) K/uL BMP 02/04/25 12:30 Sodium 146 Potassium 3.8 Chloride 111 Carbon Dioxide 25 BUN 28 Creatinine 0.6 Glucose 142 H Calcium 9.8 Cardiac Enzymes 02/04/25 Range/Units 12:30 Total Creatine Kinase 554 H (41-117) U/L Troponin I 0.02 (0.01-0.04) ng/mL Liver Function 02/04/25 Range/Units 12:30 Total Bilirubin 0.8 (0.1-1.5) mg/dL AST 47 H (12-35) U/L ALT 25 (4-35) U/L Alkaline Phosphatase 89 (40-150) U/L Albumin 4.5 (3.3-5.0) g/dL
[2025-02-04] MEDS: MORPHINE 10 MG/0.5 ML ORAL SOLN PO ×6 (15:38→22:47)
--- NOTE | 2025-02-04 19:00 | PC.NURSE ---
End of shift report [id number]: Patient admitted to room at 1430 with brother Zach and OVI Joselyn bedside. Patient non responsive to verbal commands. Patient moaning and restless, PRN ativan and morphine given for restlessness and effective for approximately 40 minutes and then patient becomes restless again. Dr. Hernandez updated and new order for MS contin CO. Patient given bed bath and repositioned q2h. Family bedside.
[2025-02-04] MEDS: SODIUM CHLORIDE 0.9 % (FLUSH) 10 ML SYRINGE 5 ML IVF (20:23)
[2025-02-05] MEDS: MORPHINE 10 MG/0.5 ML ORAL SOLN PO ×5 (00:38→09:20)
--- NOTE | 2025-02-05 06:57 | PC.NURSE ---
Pt on comfort?cares. Unresponsive?to verbal command.?Pt had no urine?output;?bladder scan showed 850, miranda catheter placed with 900 out.?Pt?indicates?some?discomfort throughout shift by groaning, prn morphine provided. Pt?repoed?q2h. Family at bedside.??
[2025-02-05 07:00] VITALS: PULSE 66; RESP 16
[2025-02-05] MEDS: SODIUM CHLORIDE 0.9 % (FLUSH) 10 ML SYRINGE 5 ML IVF (09:20)
--- NOTE | 2025-02-05 12:16 | PC.SOCIAL ---
Discharge planning: Met with [id number] Julia, regarding discharge plan. Family is requesting placement at [facility] if bed available and agree with hospice referral when discharge location is determined. Provided family with contact information for the body donation program at the [facility]. Per family, pt is signed up for this but they are unable to locate paperwork. deli worker secure emailed referral to [facility] for evaluation for admit. Pt has [facility] as insurance which is expected to cover the [facility] board while Medicare will cover the hospice services. deli worker to follow up as needed.
--- NOTE | 2025-02-05 16:26 | P.IMPN_ITS ---
Assessment and Plan Assessment and plan (1) Hemorrhagic cerebrovascular accident (CVA): Problem comment: -this is not survivable. -massive left frontal lobe bleed -associated intraventricular decompression, bilateral subarachnoid hemorrhages, rightward shift, effacement of the frontal horn and left lateral ventricle. Dilated temporal horn of the right lateral ventricle. -comfort cares/Hospice appropriate Status: Acute (2) End of life care: Status: Acute (3) Cerebral amyloid angiopathy: Problem comment: known; chronic - previous strokes. Status: Acute (4) H/O completed stroke: Status: Acute (5) POLST (Physician Orders for Life-Sustaining Treatment): Problem comment: brother and OVI - present POA paperwork and previous POLST - given current situation, comfort care is appropriate. Status: Acute (6) Hypertension: Status: Acute (7) Hyperlipidemia: Status: Acute (8) Depression: Status: Acute Subjective Date Seen: 02/05/25 Interval history: Daily Progress Note - Hospital #: 2 CC: Devastating left frontal lobe hemorrhagic CVA; end of life care 24 HOUR UPDATE: Moraima is surrounded by living family. She is unresponsive. She looks relaxed. No more tremor in the left upper extremity. No more agitation across her face. Her respiratory rate is slowing and she appears to be transitioning to end of life. Notable Labs, Micro, Rads, Interventions: Comfort cares, no labs. No investigations. Objective: Obtain ended. Breathing spontaneously. Slightly irregular and about 10-12 breaths a minute. Vitals: see above Lungs: Clear. Cardiac: S1S2. No obvious mottling at this point. Disposition/Potential discharge - Likely hospice at [facility] if she does not pass overnight. Today I spent 50 minutes seeing the patient, reviewing Expanse and EPIC notes/diagnostics, discussing the care plan with our care time that includes social work, PT/OT, pharmacy, RT, senior living and documenting my impressions and plan in the medical record. Exam Const: Vital Signs, click to edit/add: Vital Signs - 24 hr 02/04/25 23:00 02/05/25 07:00 Pulse Rate [Pulse Oximeter] 66 66 Respiratory Rate 16 16
--- NOTE | 2025-02-05 17:46 | PC.NURSE ---
Pt somnolent for most of shift, chest rise and fall noted, Respirations regular . pt appears comfortable, family not requesting pain medication at this time. brief dry, no skin sores noted
[2025-02-05 23:08] VITALS: PULSE 66; RESP 16
[2025-02-06] MEDS: SODIUM CHLORIDE 0.9 % (FLUSH) 10 ML SYRINGE 5 ML IVF ×2 (01:00→09:51)
--- NOTE | 2025-02-06 12:15 | PC.SOCIAL ---
Discharge planning: Multiple calls with admissions staff and Plasma Processing Technician at [facility] regarding referral that was sent yesterday for placement with hospice today. [facility] has not yet made a decision on admit. Additional requested information has already been provided. Received call from pt's [facility] Vanstone Machine Operator, Adry, . Per Adry, there is no prior authorization needed by pt's insurance for admit for hospice care at a long term facility. Shared this information with [facility] admissions team. Hospice has not yet been arranged as discharge location has not been confirmed. Awaiting call back from [facility] regarding decision on admit. correction worker to follow up as needed.
--- NOTE | 2025-02-06 13:04 | PC.SOCIAL ---
Addendum entered by TONG Shell 02/06/25 13:21: JOHANNA completed and submitted confirmation # [id number]. Original Note: Discharge planning: Received call from Lakia at [facility] stating they can accept pt today if hospice can start care the same day. Pt can arrive up to 3:30 today. Called [facility] and faxed referral to Supriya at [facility] who will check on availability for hospice admit today at [facility]. Hospice services and care at [facility] would be covered by pt's insurance. Called pt's DAMIAN Dumont [phone] who is aware and agrees with this plan. Julia agrees to pt being sent by ambulance to [facility] at discharge. Answered families questions. Called [facility] and provided faculty support coordinator with Julia's contact information. Awaiting call back from [facility] to confirm admit to hospice today and then will arrange EMS ambulance for discharge. irrigation worker to follow up as needed.
--- NOTE | 2025-02-06 14:37 | P.DS_ITS ---
DS: Providers Provider Date Seen: 02/06/25 Date of admission: 02/04/25 14:33 Primary care physician: Delicia Lofton MD Admitting Clinician: Yarely Flanagan MD [facility] Consults: 02/04/25 14:42 Consult to Office Helper Clerical [CONS] Routine Comment: Reason for Consult:: Social Service Consult Attending Physician on discharge: Yarely Flanagan MD [facility] Date of Discharge: 02/06/25 DS: Diagnosis Discharge Diagnosis (1) Hemorrhagic cerebrovascular accident (CVA): Status: Acute Problem details: -this is not survivable. -massive left frontal lobe bleed -associated intraventricular decompression, bilateral subarachnoid hemorrhages, rightward shift, effacement of the frontal horn and left lateral ventricle. Dilated temporal horn of the right lateral ventricle. -comfort cares/Hospice appropriate (2) End of life care: Status: Acute (3) Cerebral amyloid angiopathy: Status: Acute Problem details: known; chronic - previous strokes. (4) Hypertension: Status: Acute DS: Summary Hospital Course Hospital Course: QUESTIONS TO ASK AT FOLLOW-UP: BRIEF HOSPITAL COURSE: Patient was admitted for 2 days. Moraima was found down in her home. Length of time is unclear. She was obtunded. She had suffered a devastating left frontal lobe hemorrhagic CVA. She had intraventricular decompression, subsequent arachnoid hemorrhage, rightward shift and effacement of the left lateral ventricle. This was deemed fatal and any efforts otherwise would be futile. Consultation with Neurosurgery, intensive care were done in the emergency room. The patient came to us on med surg for comfort cares. We made her comfortable with morphine concentrate orally, transdermal Duragesic fentanyl a, p.r.n. Ativan and fentanyl IV. She was accepted to hospice on the afternoon of February 06. Her family was happy with the transition plans. Pain and anxiety and agitation were addressed prior to departure DISCHARGE MEDICATIONS: All home meds were stopped Duragesic fentanyl, oral morphine Specific instructions to the patient and follow-up are outlined below. REVIEW OF SYSTEMS No new chest pain or dyspnea Pain controlled No voiding difficulties Tolerating diet challenge PHYSICAL EXAM: CONSTITUTIONAL: Obtunded, unresponsive GENERAL: Well-developed, well-nourished. VITAL SIGNS: see record. HEENT: Sclerae are anicteric. No petechiae. CARDIAC: rhythm is regular. There is no S3 or rub. No harsh murmurs. Extremities show trace edema with symmetrical pulses. PULM: Shallow irregular respirations NEURO: GCS 4, distal extremities are still warm. No mottling. SKIN: No rashes, petechiae, concerning changes PSYCHIATRIC: Obtunded DISPOSITION: [facility], hospice opening her today Time spent on discharge 37 minutes. Status at Discharge Functional status at discharge: bed bound Overall status at discharge: other (Obtunded, comatose) Time Spent with Patient Time attestation: Total time spent providing and/or coordinating discharge services: Time spent: Greater than 30 minutes Exam Const: Vital Signs, click to edit/add: Vital Signs - 24 hr 02/05/25 23:08 Pulse Rate [Pulse Oximeter] 66 Respiratory Rate 16 Discharge Plan Discharge Disposition: [facility] Date of Admission: 02/04/25 14:33 Attending Provider on Discharge: Yarely Flanagan Primary Care Provider: Delicia Lofton I Discharge Medications: New fentanyl 100 mcg/hr Patch 72 Hour 1 patch transdermal Q72H Qty: 5 0RF morphine 10 mg/5 mL solution 10 mg PO Q1H PRNQty: 100 0RF Discontinued atorvastatin 20 mg tablet 20 mg PO DAILY carvedilol 12.5 mg tablet 12.5 mg PO BID levetiracetam 500 mg tablet 500 mg PO BID tamsulosin 0.4 mg capsule 0.4 mg PO DAILY amlodipine 10 mg tablet 10 mg PO DAILY cyclobenzaprine 5 mg tablet 5 mg PO TID PRN Discharge Orders: Discharge Order (Routine); Ordered 02/06/25 Ordered By: Yarely Flanagan Additional Instructions: Pt has suffered a devastating massive hemorrhagic CVA to the left frontal lobe. Her pain is more intense than the expected hospice patient. She is maintained on hourly morphine concentrate and fentanyl Duragesic. Patient had fentanyl applied am of 02/06/25 and we are sending a bottle of morphine concentrate with her. Activity Detail: bedrest Diet Detail: NPO except mouth cares Forms: [facility] Info Instructions Admit to: SNF Discharge Potential: Poor Length of Stay: <30 days Can use facility standing orders?: Yes Code Status: DNR/DNI Rehab Potential: Poor Oxygen: No Urinary Catheter: No Hospice Evaluate and Admit: Admit to Hospice Orders are good >30 days: Yes
--- NOTE | 2025-02-06 15:04 | PC.NURSE ---
Discharge Note 282 Patient unresponsive. Comfort cares. EMS transport to [facility]. Fentanyl patch present on left upper arm 100 mcg. Last dose of Morphine 10 mg given at departure. Nicole in place. Patient does not show any signs of distress. Family present. Morphine bottle given to EMS personnel.
== END 2025-02-06 14:45 ==
LOC: ED 13:42 → MEDSURG 14:33
PROVIDERS: Admitting Provider Orthopaedic Surgery; Emergency Provider Family Medicine; PCP Family Medicine; Visit Provider Orthopaedic Surgery
DX: I61.1 Nontraumatic intracerebral hemorrhage in hemisphere, cortical (principal); Z51.5 Encounter for palliative care; E85.4 Organ-limited amyloidosis; I68.0 Cerebral amyloid angiopathy; I10 Essential (primary) hypertension; E78.5 Hyperlipidemia, unspecified; F32.A Depression, unspecified; Z86.69 Personal history of other diseases of the nervous system and sense organs; Z66 Do not resuscitate
CPT/HCPCS: 36415; 51701; 70450; 71045; 80053; 81001; 82077; 82550; 82803; 83605; 83880; 84484; 85025; 85610; 85730; 87631; 93005; 94761; 96365; 96375; 99284; 99285; 99291; A9270; G0378; J1953; J2060; J3010

== ENCOUNTER 2025-02-06 14:54 | Outpatient (CLI) | payer BC, SELFPAY | END 2025-02-06 14:55 | disposition home or self-care (01) | LOC: AMB 02-11 16:00 | PROVIDERS: PCP Family Medicine; Visit Provider Family Medicine | DX: I61.9 Nontraumatic intracerebral hemorrhage, unspecified (principal); Z51.5 Encounter for palliative care | CPT/HCPCS: A0425; A0428 ==